=== PATIENT | female | born 1985 | race Two or more races ===

== ENCOUNTER → 2024-07-28 | Outpatient (CLI) | payer MEDICAID, SELFPAY ==
--- NOTE | 2024-07-28 13:32 | XR_ITS ---
Examination: Lumbar spine 3 views Technique one AP lateral coned lateral lower lumbar spine 3 views Exam date and time: July 28, 2024 1345 hours INDICATIONS: Low back pain radiating to both legs beginning one month ago. FINDINGS: Adequate alignment lumbar vertebral bodies No lumbar fracture Mild disc narrowing L5-S1 No spondylolisthesis IMPRESSION: Mild disc narrowing L5-S1 As clinically warranted, MRI lumbar spine without contrast follow-up would best assess for soft tissue disc protrusion producing radicular leg pain
== END | disposition home or self-care (01) ==
LOC: CDIM 13:19
PROVIDERS: PCP Nurse Practitioner Family; Referring Provider Nurse Practitioner Family; Visit Provider Nurse Practitioner Family
DX: M48.07 Spinal stenosis, lumbosacral region (principal)
CPT/HCPCS: 72100

== ENCOUNTER → 2024-08-24 | Outpatient (CLI) | payer MEDICAID, SELFPAY ==
--- NOTE | 2024-08-24 13:35 | XR_ITS ---
Examination: Shoulder,left, 3 views Technique: Shoulder AP internal rotation, AP external rotation, Y view shoulder, 3 views Exam date and time :August 24, 2024 1426 hours INDICATIONS: Left shoulder pain beginning 2 months ago. FINDINGS: No shoulder fracture or dislocation Mild narrowing glenohumeral joint No calcific tendinitis IMPRESSION: Mild narrowing glenohumeral joint
== END | disposition home or self-care (01) ==
LOC: COPL 13:33 → CDIM 09-16 06:29
PROVIDERS: PCP Physician Assistant; Referring Provider Nurse Practitioner Family; Visit Provider Nurse Practitioner Family
DX: M25.812 Other specified joint disorders, left shoulder (principal)
CPT/HCPCS: 73030

== ENCOUNTER 2024-09-04 10:56 | Outpatient (RCR) | payer MEDICAID, SELFPAY ==
--- NOTE | 2024-09-04 13:57 | PTNOTE_ITS ---
PT OP Initial Eval Patient Information Outpatient Physical Therapy Treatment Date: 09/04/24 Visit Reasons: Lumbar Region Medical Diagnosis: M54,16 Treatment Dx #1: Back Pain Start of Care: 09/04/24 Smoking Status Smoking Status: Never smoker Initial Assessment Subjective: Pt is a 39 y/o female reports of chronic back pain (01/21) with intermittent pain down the legs. Pt has been diagnosed with fibromyalgia and Lupus. Pt's most recent xray showed mild DDD of L5-S1. Pt has limitation with sitting, standing, chores, self care, cooking, cleaning, walking, and performing recreational activities. Objective: L/S AROM: all motions are 50% towards end range in all plane Hip PROM: all motions are WFL except IR Hip MMTs: grossly 3+/5 Special Test (+) SLR (+) seymour Assessment: Pt demonstrate L/S mobility deficits with pain leading to difficulty with ADLs. 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
== END 2024-09-11 23:59 | disposition home or self-care (01) ==
LOC: CPTX 10:56
PROVIDERS: PCP Nurse Practitioner Family; Referring Provider Nurse Practitioner Family; Visit Provider Nurse Practitioner Family
DX: M54.16 Radiculopathy, lumbar region (principal); R26.2 Difficulty in walking, not elsewhere classified; G89.29 Other chronic pain; M79.7 Fibromyalgia
CPT/HCPCS: 97162

== ENCOUNTER 2024-10-12 10:00 | Outpatient (RCR) | payer MEDICAID, SELFPAY ==
--- NOTE | 2024-09-14 12:57 | PT.ODAYNRPT ---
PT Outpatient Daily Note OP Daily Note Outpatient Physical Therapy Treatment Date: 09/14/24 Visit Reasons: LUMBAR REGION Subjective: Pt's back is about the same and continues to hurt in the right side. Objective: Please see flow chart for list of ther ex performed Assessment: supine heat allowed patient to tolerate the exercises. Minimal change in back pain post PT session Plan: Continue with PT Length of Time (minutes) of Treatment: 30 Minutes Procedure Charges Therapeutic Exercise 30 minutes: Yes
--- NOTE | 2024-09-16 11:35 | PT.ODAYNRPT ---
PT Outpatient Daily Note OP Daily Note Outpatient Physical Therapy Treatment Date: 09/16/24 Visit Reasons: LUMBAR REGION Subjective: No new complaints. Objective: Please see flow sheet for ther ex list. Assessment: Pt instructed on posterior pelvic tilt exercise, pt able to perform with good technique post verbal cues and demonstration. Plan: Continue with POC. Length of Time (minutes) of Treatment: 30 Minutes Procedure Charges Therapeutic Exercise 30 minutes: Yes
--- NOTE | 2024-09-21 13:43 | PT.ODAYNRPT ---
PT Outpatient Daily Note OP Daily Note Outpatient Physical Therapy Treatment Date: 09/21/24 Visit Reasons: LUMBAR REGION Subjective: Pt reports LBP is about the same, no changes at this time. Objective: Please see flow sheet for ther ex list. Assessment: Pt tolerates light interventions with minimal pain. Plan: Continue with POC. Length of Time (minutes) of Treatment: 30 Minutes Procedure Charges Therapeutic Exercise 30 minutes: Yes
--- NOTE | 2024-09-24 11:51 | PT.ODAYNRPT ---
PT Outpatient Daily Note OP Daily Note Outpatient Physical Therapy Treatment Date: 09/24/24 Visit Reasons: LUMBAR REGION Subjective: Pt's back feeling less stiff and moving more lately. Pt just seen chiropractor yesterday and back is still sore from the adjustment. Objective: Please see flow chart for list of ther ex performed Assessment: progressing with supine exercises with less pain reported; patient demonstrate more L/S mobility while performing exercises Plan: Continue with PT Length of Time (minutes) of Treatment: 30 Minutes Procedure Charges Therapeutic Exercise 30 minutes: Yes
--- NOTE | 2024-09-30 10:31 | PT.ODAYNRPT ---
PT Outpatient Daily Note OP Daily Note Outpatient Physical Therapy Treatment Date: 09/30/24 Visit Reasons: LUMBAR REGION Subjective: Pt's back is a little better. No new concerns to report. Objective: Please see flow chart for list of ther ex performed Assessment: added more hip exercises with good tolerance Plan: Continue with PT Length of Time (minutes) of Treatment: 30 Minutes Procedure Charges Therapeutic Exercise 30 minutes: Yes
--- NOTE | 2024-10-02 09:51 | PT.ODAYNRPT ---
PT Outpatient Daily Note OP Daily Note Outpatient Physical Therapy Treatment Date: 10/02/24 Visit Reasons: LUMBAR REGION Subjective: Pt's back is a little stiff this morning but it is slowly feeling better Objective: Please see flow chart for list of ther ex performed Assessment: added nerve floss in supine to exercise program with good tolerance Plan: Continue with PT Length of Time (minutes) of Treatment: 30 Minutes Procedure Charges Therapeutic Exercise 30 minutes: Yes
--- NOTE | 2024-10-12 13:03 | PT.ODAYNRPT ---
PT Outpatient Daily Note OP Daily Note Outpatient Physical Therapy Treatment Date: 10/12/24 Visit Reasons: LUMBAR REGION Subjective: Pt was doing more over the weekend and heard a pop in her back. Since the incident Pt's been having more back pain and was unable to sleep last night. Objective: Please see flow chart for list of ther ex performed Assessment: instructed patient to pay to attention to worsening back pain prior to return back to PCP for a follow up. Pt was able to tolerate today's session with minimal increase in pain Plan: Continue with PT Length of Time (minutes) of Treatment: 30 Minutes Procedure Charges Therapeutic Exercise 30 minutes: Yes
== END 2024-10-12 23:59 | disposition home or self-care (01) ==
LOC: CPTX 10:00
PROVIDERS: PCP Nurse Practitioner Family; Referring Provider Nurse Practitioner Family; Visit Provider Nurse Practitioner Family
DX: M54.16 Radiculopathy, lumbar region (principal); M79.7 Fibromyalgia
CPT/HCPCS: 97110

== ENCOUNTER 2024-11-05 09:30 | Outpatient (RCR) | payer MEDICAID, SELFPAY ==
--- NOTE | 2024-10-20 12:56 | PT.ODAYNRPT ---
PT Outpatient Daily Note OP Daily Note Outpatient Physical Therapy Treatment Date: 10/20/24 Visit Reasons: Lumbar Region Subjective: Pt's back feels good. No concerns to report. Pt mentioned less stiffness in the spine lately. Objective: Please see flow chart for list of ther ex performed Assessment: progressing with spinal exercises with less pain reported. Cues to decrease upper trape recruitment with low rows/rows exercises with theraband Plan: Continue with PT Length of Time (minutes) of Treatment: 30 Minutes Procedure Charges Therapeutic Exercise 30 minutes: Yes
--- NOTE | 2024-10-26 11:41 | PT.ODAYNRPT ---
PT Outpatient Daily Note OP Daily Note Outpatient Physical Therapy Treatment Date: 10/26/24 Visit Reasons: Lumbar Region Subjective: Pt feels that wall ozzy is difficult. Pt continues to notice slight improvement with her overall back and hip mobility. Objective: Please see flow chart for list of ther ex performed Assessment: checked Hs length and demonstrate normal length; Hs stretch withheld today. Added more core exercises with good tolerance Plan: Continue with PT Length of Time (minutes) of Treatment: 30 Minutes Procedure Charges Therapeutic Exercise 30 minutes: Yes
--- NOTE | 2024-10-29 10:25 | PT.ODAYNRPT ---
PT Outpatient Daily Note OP Daily Note Outpatient Physical Therapy Treatment Date: 10/29/24 Visit Reasons: Lumbar Region Subjective: Pt reports she is really hurting today and sore, went to see a chiropractor yesterday. Objective: Please see flow sheet for ther ex list. Assessment: Regressed interventions to accommodate reported pain, pt ambulating with decrease nhi and limp gait. Plan: Continue with poC. Length of Time (minutes) of Treatment: 30 Minutes Procedure Charges Therapeutic Exercise 30 minutes: Yes
--- NOTE | 2024-11-03 10:52 | PT.ODAYNRPT ---
PT Outpatient Daily Note OP Daily Note Outpatient Physical Therapy Treatment Date: 11/03/24 Visit Reasons: Lumbar Region Subjective: Pt's back feels so-so and slightly better than last session. Objective: Please see flow chart for list of ther ex performed Assessment: tolerate exercises with minimal pain Plan: Continue with PT Length of Time (minutes) of Treatment: 30 Minutes Procedure Charges Therapeutic Exercise 30 minutes: Yes
--- NOTE | 2024-11-05 14:54 | PT.ODS1RPT ---
PT OP Progress/Discharge Note Date of Service: 11/05/24 Progress Note/DC Note Progress Note/Discharge Note: DC Note Patient Information Visit Reasons: Lumbar Region Medical Diagnosis: M54.16 Treatment Dx #1: Back Pain Service Continue Service or Discharge: Continue Service Certification Date Certification Dates: 11/05/24 to 02/04/25 Status Subjective: Pt's back is better and notice more mobility. Pt further reports of less intense pain down the legs. Pt has been able to sleep, stand, perform chores, and walk with less pain. Pt will like to continue physical therapy. Objective: L/S AROM: all motions are 75% towards end range Hip PROM: all motions are WFL Hip MMTs: grossly 3+/5 Assessment: Pt is improving with L/S mobility and strength allowing her to resume light ADLs with less limitation. Pt has not met set goals and will continue physical therapy to work on core strength, lifting maintenance mechanic, and overall flexibility; thank you for your referrals. Plan: Continue with PT/POC and add 8 sessions (2 x wk for 4 wks) Procedure Charges Therapeutic Exercise 30 minutes: Yes
== END 2024-11-11 23:59 | disposition home or self-care (01) ==
LOC: CPTX 09:30
PROVIDERS: PCP Nurse Practitioner Family; Referring Provider Nurse Practitioner Family; Visit Provider Nurse Practitioner Family
DX: M54.16 Radiculopathy, lumbar region (principal); M79.7 Fibromyalgia
CPT/HCPCS: 97110

== ENCOUNTER 2024-11-16 22:59 | Inpatient (IN) | payer MEDICAID, SELFPAY ==
[2024-11-16 23:01] VITALS: BMI 42.5
[2024-11-16 23:22] VITALS: BP 157/86; PULSE 106; RESP 20; TEMP 37.7; O2SAT 98
[2024-11-17] VITALS (10 sets, daily range): BP systolic 109–159; BP diastolic 80–104; PULSE 93–137; RESP 16–100; TEMP 36.2–37.6; O2SAT 98–100; BMI 42.4
--- NOTE | 2024-11-17 00:16 | PD.EDRME ---
Rapid Medical Screening Exam RME Arrival date/time: 11/16/24 22:59 Chief Complaint: Back Pain/Injury Time Seen by Provider: 11/16/24 23:25 Vital signs: Vital Signs Temperature 99.8 F 11/16/24 23:22 Pulse Rate 106 H 11/16/24 23:22 Respiratory Rate 20 11/16/24 23:22 Blood Pressure 157/86 H 11/16/24 23:22 Pulse Oximetry (%) 98 11/16/24 23:22 Oxygen Delivery Method Room Air 11/16/24 23:22 Vital signs reviewed by provider: Yes RME Narrative: 39-year-old female with a history of lupus presents to the ED with a 7-day history of nausea, vomiting, diarrhea, low back pain with radiation to her right upper quadrant. She has been unable to take her lupus medication and is now in a lupus flare. Previous symptoms 1 month ago diagnosed with UTI/kidney infection. Concern for repeat infection. Labs, abdominal ultrasound, UA ordered and pending. I have greeted and performed a focused initial assessment of this patient. A comprehensive ED assessment and evaluation of the patient, analysis of all test results, and completion of the medical decision making process will be conducted by additional ED providers.
--- NOTE | 2024-11-17 00:18 | XR_ITS ---
Examination: Abdomen sonogram, complete Date and time of exam: November 17, 2024 0034 hours Indication cholecystectomy September 2023, right upper abdominal pain beginning 7 days ago, diagnosis of lupus. Technique: Multiple real-time grayscale transabdominal sonographic images of the abdomen have been obtained. Findings: Absent gallbladder Doppler Common bile duct normal 0.2 cm Pancreatic head 3.2 cm Aorta nonenlarged Liver 16.6 cm fatty infiltration Normal hepatopedal portal venous flow Patent IVC Right kidney 10.2 cm renal cortex 1.5 cm Left kidney 10.6 cm renal cortex 1.4 cm Spleen 9.2 cm IMPRESSION: Absent gallbladder Normal common bile duct Mild hepatomegaly fatty liver
[2024-11-17] MEDS: ACETAMINOPHEN 325 MG TABLET 650 MG PO (00:51)
[2024-11-17 00:53] LABS: Basophils # (Auto) 0.1 Thou/mm3 (0.0-0.2); Basophils % (Auto) 1 % (0-2.5); Eosinophils # (Auto) 0.1 Thou/mm3 (0.0-0.5); Eosinophils % (Auto) 1 % (0-10); Hemoglobin 9.9 g/dL (12.0-16.0); Immature Granulocytes % (Auto) 1 % (0-0); Immature Granulocytes Auto 0.06 Thou/mm3 (0.00-0.00); Lymphocytes # (Auto) 3.3 Thou/mm3 (1.0-4.8); Lymphocytes % (Auto) 25 % (10-50); Mean Corpuscular HGB Conc 30.9 g/dl (31.0-37.0); Mean Corpuscular Hemoglobin 24.8 pg (25.0-35.0); Mean Corpuscular Volume 80 fL (80-100); Monocytes # (Auto) 1.5 Thou/mm3 (0.0-0.8); Monocytes % (Auto) 11 % (0-12); Neutrophils # (Auto) 8.3 Thou/mm3 (1.8-7.7); Neutrophils % (Auto) 63 % (37-80); Nucleated Red Blood Cell % 0 /100 WBC (0); Platelet Count 423 Thou/mm3 (140-440); RDW Standard Deviation 49.1 fL (36.4-46.3); Red Blood Count 3.99 Miln/mm3 (4.00-5.20); White Blood Count 13.3 Thou/mm3 (3.6-11.0)
[2024-11-17 01:20] LABS: Alanine Aminotransferase 26 U/L (10-49); Albumin, Serum 4.6 gm/dL (3.5-5.0); Albumin/Globulin Ratio 1.4 (1.2-2.2); Alkaline Phosphatase 117 U/L (46-116); Amylase 60 U/L (30-118); Anion Gap 11 (7-16); Aspartate Amino Transferase 20 U/L (0-34); BUN/Creatinine Ratio 9 Ratio (12-20); Bilirubin,Total < 0.2 mg/dL (0.3-1.2); Blood Urea Nitrogen 7 mg/dL (9-23); Carbon Dioxide 21.5 mMol/L (20.0-31.0); Chloride 107 mMol/L (98-107); Creatinine (Component) 0.8 mg/dL (0.6-1.3); Estimated Creatinine Clearance 110.7 mL/min (>60); Globulin 3.2 gm/dL (2.3-3.5); Glucose 94 mg/dL (74-106); Lipase 33 U/L (12-53); Osmolality,Calculated 275 (275-295); Potassium 3.6 mMol/L (3.4-5.1); Sodium 139 mMol/L (136-145); Total Protein 7.8 gm/dL (5.7-8.2); eGFR > 60 See Note
--- NOTE | 2024-11-17 02:18 | PRELIM_ITS ---
Ultrasound Abdomen with doppler and wave doppler spectral analysis. November 17, 2024 0034 hours Clinical history: Right upper quadrant abdominal pain Comparison: None available at the time of this report. Findings: The liver demonstrates increased echogenicity. No intrahepatic biliary ductal dilatation. Status postcholecystectomy. The common bile duct is normal in caliber at 2.2mm. No free fluid is demonstrated on the submitted images. The pancreas is unremarkable to the extent visualized. The right kidney measures 10.2cm. The left kidney measures 10.6cm. There is no hydronephrosis and the corticomedullary differentiation is maintained. The spleen is normal measuring 9.2cm in length. The abdominal aorta and inferior vena cava to the extent visualized are within normal limits. The portal vein is patent with epileptogenic fluid normal wave Doppler spectral analysis. The hepatic veins are patent with normal wave Doppler spectral analysis. Impression: Liver steatosis. Report Electronically Signed By: Ken Echevarria 11/17/2024 2:17:59 AM [EST]
--- NOTE | 2024-11-17 03:03 | XR_ITS ---
Examination: AP chest single view TECHNIQUE: AP portable upright chest single view Exam date time: November 17, 2024 0349 hours INDICATIONS: Nausea vomiting diarrhea low back pain beginning 7 days ago FINDINGS: Normal heart size Mild elevation right hemidiaphragm. No pneumonia or pulmonary edema Mild osteopenia IMPRESSION: No pneumonia or pulmonary edema
--- NOTE | 2024-11-17 03:03 | EKG_ITS ---
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
--- NOTE | 2024-11-17 03:13 | PD.EDADULT ---
ED General RME/HPI General Chief complaint: Nausea/Vomiting/Diarrhea Stated complaint: RT FLANK PAIN /RIBS /N/V/ DIARRHEA X 7 DAYS Time Seen by Provider: 11/16/24 23:25 Arrival date/time: 11/16/24 22:59 RME / HPI RME / HPI narrative: This patient is a 39-year-old female with past medical history of lupus on hydroxychloroquine and Plaquenil, history of chronic pain on gabapentin and venlafaxine, insomnia presented to the ED with 5-day history of nausea vomiting loose stools and abdominal discomfort/pain radiating to the right side/right flank. Patient reported that she had a urinary tract infection a month ago and completed antibiotic course during that time. She is concerned of having another UTI at this time. She reported to had more than 3-4 episodes of vomiting without blood and is not able to tolerate oral intake. She also reported to had more than 10 bowel movements in 1 day with pinkish tinge unsure if its blood. Stool color is yellowish-green. She reported to have some subjective feeling of fever/chills or shakiness. He has some frequency however denies any burning sensation. She also had associated racing of heart. Denies any shortness of breath, chest pain or dizziness. 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 Patient took Keflex for total 2 weeks a month ago for urine tract infection. Vital signs showed elevated blood pressure 151/104, tachycardia 134, tachypnea 22 breaths, afebrile and saturating well on room air. Labs were significant for leukocytosis white count 13.3, hemoglobin 9.9, platelet count 423. CHEM panel showed sodium 139, potassium 3.6, chloride 107, bicarb 21.5. Kidney function stable with BUN 7 and creatinine 0.8. GFR 60. Blood glucose 94. Liver enzymes unremarkable. Lipase was negative.ESR and CRP were ordered. could evaluate with complement levels and double stranded DNA. Sepsis alert was initiated as patient had 3/4 SIRS criteria with tachycardia tachypnea and leukocytosis. 2 L bolus of LR given x 1 and maintenance fluid at 100 cc was started. Additionally, Rocephin x 1, morphine x 1 and Zofran with Protonix was given. Urinalysis is pending.Ultrasound of the abdomen showed liver steatosis. No hydronephrosis or kidney stones were seen. EKG showed sinus tachycardia with QTc 487.will evaluate with CT abdomen/pelvis with contrast. Admitting hospitalist was notified and patient will be admitted for intractable N/V and sepsis likely related to GI infection or c diff or UTI or possible lupus flare. PMH: As above PSH: Ovarian cyst removal, tubal ligation, appendectomy, cholecystectomy SH: Denies smoking tobacco. Drinks alcohol socially. No history of illicit drug use Allergies: Phenergan causes rash, Toradol causes rash, ciprofloxacin causes rash and iodinated contrast causes hives Home medications: Plaquenil 200 mg x 2, Flexeril x 1, gabapentin 300 mg x 2, hydroxychloroquine 200 mg x 2, venlafaxine 75 mg x 1, trazodone x 1, folic acid, multivitamins complaint: Right upper quadrant pain radiating to the right flank Onset (ago): day(s) (5) Location: abdomen Radiation: abdomen and flank (Right flank) Severity: moderate Severity scale (1-10): 7 Quality: aching and constant Consistency: constant Associated symptoms: fever/chills, headaches, malaise, nausea/vomiting and weakness Related Data Previous Rx's ?Medication ?Instructions ?Recorded hydrocodone 5 mg-acetaminophen 325 1 tab PO BID PRN pain #14 tabs 03/11/21 mg tablet ibuprofen 800 mg tablet 800 mg PO TID PRN pain #30 tabs 03/11/21 lorazepam 1 mg tablet (Ativan) 1 mg PO BID PRN anxiety #14 tabs 03/11/21 prednisone 20 mg tablet 20 mg PO QDAY #7 tabs 03/11/21 wyfegmovuh-metraewhtjfnt-evvipdek 1 cap PO TID PRN migraine headache 03/19/22 50 mg-300 mg-40 mg capsule #20 caps (Fioricet) ondansetron HCl 4 mg tablet 4 mg PO TID PRN nausea and 03/19/22 vomiting #20 tabs cyclobenzaprine 7.5 mg tablet 7.5 mg PO TID #14 tabs 08/20/22 acetaminophen 300 mg-codeine 30 mg 1 tab PO Q6H PRN pain #20 tabs 08/15/23 tablet dicyclomine 20 mg tablet 20 mg PO TID PRN abdominal pain 02/01/24 #21 tabs famotidine 40 mg tablet (Pepcid) 40 mg PO BID #14 tabs 08/15/23 acetaminophen 300 mg-codeine 15 mg 1 tab PO BID PRN pain #7 tabs 09/08/23 tablet ondansetron 4 mg disintegrating 4 mg PO Q8H PRN nausea and 10/28/23 tablet vomiting #10 tabs metoclopramide HCl 10 mg tablet 10 mg PO Q6H PRN nausea and 11/10/23 (Reglan) vomiting #20 tabs Allergies Allergy/AdvReac Type Severity Reaction Status Date / Time ciprofloxacin (From Cipro) Allergy Severe Rash Verified 02/25/24 14:33 Iodinated Contrast Media Allergy Severe Hives Verified 02/25/24 14:33 ketorolac (From Toradol) Allergy Severe Rash Verified 02/25/24 14:33 promethazine (From Phenergan) Allergy Severe Rash Verified 02/25/24 14:33 Review of Systems Review of Systems Systems Reviewed: All systems reviewed, normal except as documented Past Medical History Past Medical History MUSCULOSKELETAL: Positive Fibromyalgia ED Exam Narrative Physical exam: GENERAL APPEARANCE: AxOx4, generally well-appearing female in mild distress due to abdominal pain. Saturating well on room air. HEENT: NC, AT. Dry mucous membrane. EOMI, clear conjunctiva, oropharynx clear. NECK: Supple without lymphadenopathy. No stiffness or restricted ROM. HEART: Sinus tachycardia with regular rhythm, normal S1/S2, no m/r/g LUNGS: CTAB, moving air well. No crackles or wheezes are heard. ABDOMEN: Soft, right upper quadrant tenderness with tenderness on the right flank, nondistended with good bowel sounds heard. BACK: No CVAT, no obvious deformity. EXTREMITIES: Without cyanosis, clubbing or edema. NEUROLOGICAL: Grossly nonfocal. Alert and oriented, moving all 4 extremities. CN not formally tested but appear grossly intact. Observed to ambulate with normal gait. Skin: Warm and dry without any rash. Psych: Mild anxiety however appropriate mood and affect Course Quality Measures none Orders Category Date Time Status Bedside Blood Glucose NOW Care 11/17/24 03:03 Active COVID-19 Screening Questionnaire NOW Care 11/17/24 05:[address] Screening NOW Care 11/17/24 03:[address] Screening NOW Care 11/17/24 04:02 Active Wheel Worker Q4H START 00 Care 11/17/24 03:03 Active Decision to Admit X1 Care 11/17/24 05:09 Active EKG (ED ONLY) *Do not use* NOW Care 11/17/24 03:07 Completed Insert IV NOW Care 11/17/24 03:03 Active Miscellaneous Nursing Order NOW Care 11/17/24 03:34 Active NPO STAT Care 11/17/24 00:18 Active Occult Blood,Stool (Nursing) NOW Care 11/17/24 03:09 Active Strict Intake and Output Routine Care 11/17/24 03:[address] abdomen pelvis w con Stat Exams 11/17/24 04:02 Taken EKG (ED Only) Stat Exams 11/17/24 03:07 Ordered US abdomen Stat Exams 11/17/24 00:18 Taken XR chest 1V SEPSIS PROTOCOL Stat Exams 11/17/24 03:03 Taken Amylase Stat Lab 11/17/24 00:30 Completed Blood Culture (Lab) Stat Lab 11/17/24 03:33 Received CBC Stat Lab 11/17/24 00:30 Completed CRP [C-Reactive Protein] Routine Lab 11/17/24 05:19 Ordered Clostridium Difficile PCR Stat Lab 11/17/24 Ordered Comprehensive Metabolic Panel Stat Lab 11/17/24 00:30 Completed ESR [Sed Rate (ESR)] Routine Lab 11/17/24 05:19 Ordered Giardia Antigen, EIA, Stool* Stat Lab 11/17/24 Ordered HCG Qualitative,Urine Stat Lab 11/17/24 00:18 Ordered Lactate (Lactic Acid) Stat Lab 11/17/24 03:33 Completed Lipase Stat Lab 11/17/24 00:30 Completed Magnesium Stat Lab 11/17/24 03:33 Completed Partial Thromboplastin Time Stat Lab 11/17/24 00:30 Completed Phosphorous Stat Lab 11/17/24 03:33 Completed Procalcitonin Stat Lab 11/17/24 03:33 Completed Prothrombin Time with INR Stat Lab 11/17/24 00:30 Completed Stool Culture Stat Lab 11/17/24 03:09 Ordered Stool for WBCs Stat Lab 11/17/24 03:09 Ordered Urinalysis Stat Lab 11/17/24 00:18 Ordered Urine Culture Stat Lab 11/17/24 03:03 Ordered Acetaminophen Tab [Tylenol Tab] Med 11/17/24 00:20 Discontinued 650 mg PO X1 ONE DiphenhydrAMINE INJ [Benadryl Inj] Med 11/17/24 03:42 Discontinued 25 mg IV X1 ONE Magnesium Sulfate 1 gm Ivpb [Magnesium Sulfate Ivpb] Med 11/17/24 03:57 Discontinued 1 gm in 100 ml IV X1 Magnesium Sulfate 2 GM Ivpb [Magnesium Sulfate Ivpb] Med 11/17/24 06:00 Active 2 gm in 50 ml IV X1 Morphine Inj Med 11/17/24 03:03 Discontinued 2 mg IVP X1 ONE Ondansetron Inj [Zofran Inj] Med 11/17/24 03:07 Discontinued 4 mg IV X1 ONE Pantoprazole Inj [Protonix Inj] Med 11/17/24 03:07 Discontinued 40 mg IVP X1 ONE Ringers Lactated 1000 ml [Lactated Ringers] 1,000 ml Med 11/17/24 03:05 Active IV 100 mls/hr Ringers Lactated 1000 ml [Lactated Ringers] 1,000 ml Med 11/17/24 03:04 Discontinued IV 999 mls/hr Ringers Lactated 1000 ml [Lactated Ringers] 1,000 ml Med 11/17/24 03:06 Discontinued IV 999 mls/hr cefTRIAXone/D5w 1gm IV premix [Rocephin/D5w 1gm IV Med 11/17/24 03:06 Discontinued premix] 1 gm in 50 ml IV X1 metroNIDAZOLE/NS 500 MG IVPB [Flagyl 500 mg IV] Med 11/17/24 03:38 Discontinued 500 mg in 100 ml IV X1 EKG (RT) Stat RT 11/17/24 03:03 Draft Oxygen Delivery NOW RT 11/17/24 03:03 Active Vital Signs Vital signs: Vital Signs Temperature 99.8 F 11/16/24 23:22 Pulse Rate 106 H 11/16/24 23:22 Respiratory Rate 20 11/16/24 23:22 Blood Pressure 157/86 H 11/16/24 23:22 Pulse Oximetry (%) 98 11/16/24 23:22 Oxygen Delivery Method Room Air 11/16/24 23:22 Discharge Plan Plan Patient Disposition: Admit Acute Care w/in Hospital Prescriptions/Referrals Prescriptions/Med Rec: No Action vfqnnwjemw-dvtazcyzxiffe-tfog [Fioricet] 50-300-40 mg capsule 1 cap PO TID PRN (Reason: migraine headache) Qty: 20 0RF ondansetron HCl 4 mg tablet 4 mg PO TID PRN (Reason: nausea and vomiting) Qty: 20 0RF ibuprofen 800 mg tablet 800 mg PO TID PRN (Reason: pain) Qty: 30 0RF hydrocodone-acetaminophen 5-325 mg tablet 1 tab PO BID MDD 4 PRN (Reason: pain) Qty: 14 0RF lorazepam [Ativan] 1 mg tablet 1 mg PO BID PRN (Reason: anxiety) Qty: 14 0RF prednisone 20 mg tablet 20 mg PO QDAY Qty: 7 0RF Taper: Prednisone Taper 20 mg DAILY for 2 Days and 0 Hour 10 mg DAILY for 2 Days and 0 Hour 5 mg DAILY for 7 Days and 0 Hour cyclobenzaprine 7.5 mg tablet 7.5 mg PO TID Qty: 14 0RF dicyclomine 20 mg tablet 20 mg PO TID PRN (Reason: abdominal pain) Qty: 21 0RF famotidine [Pepcid] 40 mg tablet 40 mg PO BID Qty: 14 0RF acetaminophen-codeine 300-30 mg tablet 1 tab PO Q6H PRN (Reason: pain) Qty: 20 0RF ondansetron 4 mg tablet,disintegrating 4 mg PO Q8H PRN (Reason: nausea and vomiting) Qty: 10 0RF acetaminophen-codeine 300-15 mg tablet 1 tab PO BID MDD 2 PRN (Reason: pain) Qty: 7 0RF metoclopramide HCl [Reglan] 10 mg tablet 10 mg PO Q6H PRN (Reason: nausea and vomiting) Qty: 20 0RF Referrals: Av Gracia PA-C [Primary Care Provider] - In 1 week Problem List Clinical Impression: Abdominal pain, Acute diarrhea, Sepsis, Intractable nausea and vomiting Patient/Caregiver Discharge Instructions Print Language: Nicaraguan Stand Alone Forms: Ruth Award Info., Patient Portal Info Letter MDM Medication Administration(s) Medication Administration History Lactated Ringer's (Lactated Ringers) 1,000 mls @ 100 mls/hr IV .Q10H AYSHA Stop: 12/17/24 03:04 Magnesium Sulfate (Magnesium Sulfate Ivpb) 2 gm in 50 mls @ 25 mls/hr IV X1 ONE Stop: 11/17/24 07:59 Discontinued Medications Acetaminophen (Acetaminophen 325 Mg Tablet) 650 mg PO X1 ONE Stop: 11/17/24 00:21 Last Admin: 11/17/24 00:51 Dose: 650 mg Documented By: JEREMY Diphenhydramine HCl (Diphenhydramine Inj 50 Mg/Ml Vial) 25 mg IV X1 ONE Stop: 11/17/24 03:43 Last Admin: 11/17/24 04:08 Dose: 25 mg Documented By: ARCADIO Lactated Ringer's (Lactated Ringers) 1,000 mls @ 999 mls/hr IV .Q1H1M ONE Stop: 11/17/24 04:04 Last Admin: 11/17/24 03:37 Dose: 999 mls/hr Documented By: ARCADIO Lactated Ringer's (Lactated Ringers) 1,000 mls @ 999 mls/hr IV .Q1H1M ONE Stop: 11/17/24 04:06 Last Admin: 11/17/24 03:55 Dose: 999 mls/hr Documented By: ARCADIO Ceftriaxone Sodium/Dextrose (Rocephin/D5w 1gm Iv Premix) 1 gm in 50 mls @ 100 mls/hr IV X1 ONE Stop: 11/17/24 03:35 Last Infusion: 11/17/24 04:17 Dose: Infused Documented By: Admin: 11/17/24 03:47 Dose: 100 mls/hr Documented By: ARCADIO Metronidazole (Flagyl 500 Mg Iv) 500 mg in 100 mls @ 100 mls/hr IV X1 ONE Stop: 11/17/24 04:37 Magnesium Sulfate/Dextrose (Magnesium Sulfate Ivpb) 1 gm in 100 mls @ 100 mls/hr IV X1 ONE Stop: 11/17/24 04:56 Last Admin: 11/17/24 04:52 Dose: 100 mls/hr Documented By: ARCADIO Morphine Sulfate (Morphine Sulf Inj 10 Mg/Ml Vial) 2 mg IVP X1 ONE Stop: 11/17/24 03:04 Last Admin: 11/17/24 03:40 Dose: 2 mg Documented By: ARCADIO Ondansetron HCl (Ondansetron Inj 2 Mg/Ml Inj 2 Ml) 4 mg IV X1 ONE; Protocol Stop: 11/17/24 03:08 Last Admin: 11/17/24 03:39 Dose: 4 mg Documented By: ARCADIO Pantoprazole Sodium (Pantoprazole Inj 40 Mg Vial) 40 mg IVP X1 ONE Stop: 11/17/24 03:08 Last Admin: 11/17/24 03:35 Dose: 40 mg Documented By: ARCADIO
[2024-11-17] MEDS: PANTOPRAZOLE INJ 40 MG VIAL IVP (03:35)
[2024-11-17] MEDS: RINGERS LACTATED 1000 ML 1,000 ML 999 ML IV ×2 (03:37→03:55)
[2024-11-17] MEDS: ONDANSETRON INJ 2 MG/ML INJ 2 ML 4 MG IV ×2 (03:39→08:03)
[2024-11-17] MEDS: MORPHINE SULF INJ 10 MG/ML VIAL 2 MG IVP (03:40)
[2024-11-17 03:41] LABS: Partial Thromboplastin Time 28.4 Seconds (22.0-36.0); Prothrombin Time 10.9 Seconds (9.0-12.2)
[2024-11-17] MEDS: cefTRIAXone/D5w 1gm IV premix 1 GM/50 ML BAG IV (03:47)
[2024-11-17 03:58] LABS: Lactate (Lactic Acid) 1.6 mMol/L (0.4-2.0)
--- NOTE | 2024-11-17 04:02 | XR_ITS ---
Examination: CT abdomen with intravenous contrast CT pelvis with intravenous contrast 2-D coronal reconstructions 2-D sagittal reconstructions Date and time of exam:November 17, 2024, 0417 hours Comparison November 10, 2023 INDICATIONS: Fever vomiting right flank pain beginning 6 days ago. CTDI: vol (mGy) 25 DLP: (mGycm) 1486 Technique: Multiple axial sections of the abdomen and pelvis have been obtained. 64 slice high-resolution scanner used. 3 mm axial sections have been obtained, post intravenous injection 60 cc Isovue 370 2-D sagittal, coronal reconstructions obtained. Low dose protocols were performed. One or more of the following dose reduction techniques were used; automated exposure control, adjustment of the mA and/or KV according to patient size, use of iterative reconstruction technique. Findings: No focal liver or splenic lesion Absent gallbladder No pancreatic or adrenal mass No hydronephrosis Mildly fluid distended colon and small bowel loops 12 mm fat-containing umbilical hernia No pericecal inflammatory change Anteverted uterus Urinary bladder intact Osseous structures intact IMPRESSION: Mild colonic and small bowel ileus
[2024-11-17] MEDS: DiphenhydrAMINE INJ 50 MG/ML VIAL 25 MG IV (04:08)
[2024-11-17 04:40] LABS: Magnesium 1.7 mg/dL (1.6-2.6); Phosphorous 3.7 mg/dL (2.4-5.1); Procalcitonin < 0.04 ng/ml (0.0-0.49)
[2024-11-17] MEDS: Magnesium Sulfate 1 gm Ivpb 1 GM/100 ML BAG IV (04:52)
--- NOTE | 2024-11-17 04:59 | PRELIM_ITS ---
CT scan of the abdomen and pelvis with intravenous contrast (axial sections with sagittal and coronal reformats). November 17, 2024 0417 hours Clinical History: Nausea, vomiting, diarrhea, sepsis. Comparison: Correlation made with abdominal ultrasound from November 17, 2024. Findings: The gallbladder is surgically absent. The unenhanced liver, spleen, pancreas, adrenals and kidneys are unremarkable. Urinary bladder is of normal partially filled configuration. Reproductive organs are unremarkable except for prior bilateral tubal ligation. There is underdistention of the stomach which limits evaluation. There is scattered small and large bowel fluid which may indicate diarrheal state. Appendix is not definitely visualized. There is no obvious inflammatory change around the cecum. There is no bowel obstruction. There is no abdominal or pelvic lymphadenopathy. There is minimal subsegmental atelectasis within the lung bases. There is no acute osseous abnormality. Impression: Scattered small and large bowel fluid may indicate diarrheal state. No bowel obstruction. No free intraperitoneal air or fluid. Report Electronically Signed By: Escobar Holt 11/17/2024 4:58:42 AM [EST]
[2024-11-17 05:33] LABS: Collection Type, Urine Clean Catch; WBC,Urine 0 /hpf (0-5)
[2024-11-17 05:36] LABS: Bilirubin,Urine Negative (Negative); Blood,Urine Negative (Negative); Clarity,Urine Clear (Clear/Hazy); Color,Urine Colorless (Lt Yel-Yel); Glucose, Urine Negative (Negative); HCG Qualitative,Urine Negative; Ketones,Urine Negative (Negative); Leukocyte Esterase,Urine Negative (Negative); Nitrite,Urine Negative (Negative); Protein,Urine Negative (Neg - Trace); RBC,Urine < 1 /hpf (0-3); Specific Gravity,Urine 1.021 (1.001-1.035); Squamous Epithelial Cell,Urine 1 /hpf (0-5); Urobilinogen,Urine Negative mg/dL (0.0-1.0)
[2024-11-17] MEDS: metroNIDAZOLE/NS 500 MG IVPB 500 MG/100 ML BAG 100 MG IV (05:38)
--- NOTE | 2024-11-17 05:43 | EVENTNT_ITS ---
Documentation for date of: 11/17/24 Event Note Event Note: A 39-year-old female presented to the ER with the chief complaint of abdominal pain. The patient described 5 days of abdominal pain radiating to the right side and right flank. The pain is associated with nausea, vomiting (more than 3?4 episodes of non-bloody emesis), and loose stools (more than 10 bowel movements in one day, yellowish-green, with a pinkish tinge?unsure if blood). She is unable to tolerate oral intake. She also c/o subjective fever, chills, shakiness, heart racing, and urinary frequency (no burning sensation). Patient denied chest pain, shortness of breath, and dizziness. One month ago, she had a urinary tract infection treated with a 2-week course of Keflex. She is concerned this may be a recurrence. She came to the ER due to worsening symptoms and inability to tolerate oral intake. The patient has a history of lupus, chronic pain, and insomnia. Surgical history includes ovarian cyst removal, tubal ligation, appendectomy, and cholecystectomy. Current medications include Plaquenil, Flexeril, Gabapentin, Hydroxychloroquine, Venlafaxine, Trazodone, Folic Acid, Multivitamins. Social history includes no smoking, social alcohol use, and no illicit drug use. Patient follows with her [employer] consultant in [place] and primary care physician at [facility]. In the ER, vital signs recorded as temp afebrile, HR 134 bpm, RR 22, BP 151/104 mmHg. Labs revealed WBC 13.3, hemoglobin 9.9, platelets 423, sodium 139, potassium 3.6, chloride 107, bicarbonate 21.5, BUN 7, creatinine 0.8, GFR 60, glucose 94. Sepsis alert initiated (3/4 SIRS: tachycardia, tachypnea, leukocytosis). Patient received 2 L LR bolus, maintenance IV fluids, Rocephin, morphine, Zofran, and Protonix. Ultrasound showed liver steatosis without hydronephrosis or stones. EKG showed sinus tachycardia with QTc 487. CT showed scattered small and large bowel fluid consistent with diarrhea, no obstruction or free air/fluid. Urinalysis pending. Patient cannot tolerate PO diet. Admit for further evaluation and treatment.
[2024-11-17] MEDS: MORPHINE SULF INJ 10 MG/ML VIAL 4 MG IVP ×4 (05:59→21:25)
--- NOTE | 2024-11-17 06:01 | PD.RESHP ---
Documentation for date of: 11/17/24 HPI History of Present Illness History of present illness: Patient is a 39-year-old female with a past medical history of systemic lupus erythematosus, fibromyalgia, history of cholecystectomy in 2023 who presented to the ER complaining of subjective fever, chills, nausea vomiting and diarrhea. Reported up to 10 episodes of diarrhea per day, watery/mushy stool, denied blood or mucus in stools, also associated nausea and vomiting unable to tolerate food. Also complaining of abdominal discomfort, localized to right upper quadrant. Due to severe GI symptoms, patient has been unable to take Plaquenil for the past 4 days, and has increasing joint pains. Denied shortness of breath or chest pain, denied hematemesis or melena. Denied dizziness or vertigo. Of note patient also reported she was seen by her director sales and trade marketing who had ordered urine studies for proteinuria, but was found to have a UTI and was given Keflex in September. Past medical history: Systemic lupus erythematosus on Plaquenil, fibromyalgia on gabapentin, history of cholecystectomy in 2023. History of appendectomy. Ovarian cyst removal. Social history: Denies smoking or alcohol, denies marijuana or meth Review of Systems Review of Systems Systems Reviewed: All systems reviewed, normal except as documented Exam Vital Signs Temp Pulse Resp BP Pulse Ox O2 Del Method 98.8 F 107 H 18 109/80 99 Room Air 11/17/24 05:52 11/17/24 05:52 11/17/24 05:52 11/17/24 05:52 11/17/24 05:52 11/17/24 05:52 Narrative Exam General: AOx3, cooperative Skin: Intact, no cyanosis or edema noted. HEENT: Atraumatic/normocephalic, MARKELL, neck supple Heart: RRR, S1 and S2 without clicks or murmurs Lungs: Clear on auscultation bilaterally, no difficulty breathing Abdomen: Soft, mildly tender RUQ . Bowel sounds present . Vascular: Peripheral pulses palpable Neuro: No focal neurological deficits noted. Results: Labs 11/17/24 00:30 11/17/24 00:30 Labs: Short CBC 11/17/24 Range/Units 00:30 WBC 13.3 H (3.6-11.0) Thou/mm3 Hgb 9.9 L (12.0-16.0) g/dL Hct 32.0 L (36.0-46.0) % Plt Count 423 (140-440) Thou/mm3 BMP 11/17/24 00:30 Sodium 139 Potassium 3.6 Chloride 107 Carbon Dioxide 21.5 BUN 7 L Creatinine 0.8 Glucose 94 Calcium 9.0 Liver Function 11/17/24 Range/Units 00:30 Total Bilirubin < 0.2 L (0.3-1.2) mg/dL AST 20 (0-34) U/L ALT 26 (10-49) U/L Alkaline Phosphatase 117 H (46-116) U/L Albumin 4.6 (3.5-5.0) gm/dL Urine 11/17/24 Range/Units 04:42 Urine Color Colorless A (Lt Yel-Yel) Urine Clarity Clear (Clear/Hazy) Urine pH 6.0 (5.0-7.0) Ur Specific Coleman 1.021 (1.001-1.035) Urine Protein Negative (Neg - Trace) Urine Glucose (UA) Negative (Negative) Quality Measures Quality Measures none Medications Home Medications and Allergies Allergies Allergy/AdvReac Type Severity Reaction Status Date / Time ciprofloxacin (From Cipro) Allergy Severe Rash Verified 02/25/24 14:33 Iodinated Contrast Media Allergy Severe Hives Verified 02/25/24 14:33 ketorolac (From Toradol) Allergy Severe Rash Verified 02/25/24 14:33 promethazine (From Phenergan) Allergy Severe Rash Verified 02/25/24 14:33 Visit Medications Acetaminophen (Acetaminophen 325 Mg Tablet) 650 mg PO Q6H PRN PRN Reason: PAIN 1-3 OR FEVER > 101 Stop: 12/17/24 05:27 Famotidine (Famotidine Inj 10 Mg/Ml Vial 2 Ml) 20 mg IVP BID AYSHA Stop: 12/17/24 08:59 Gabapentin (Gabapentin 300 Mg Capsule) 600 mg PO BID AYSHA Stop: 12/17/24 08:59 Hydroxychloroquine Sulfate (Hydroxychloroquine 200 Mg Tablet) 200 mg PO BID AYSHA Stop: 11/24/24 08:59 Lactated Ringer's (Lactated Ringers) 1,000 mls @ 100 mls/hr IV .Q10H AYSHA Stop: 12/17/24 03:04 Magnesium Sulfate (Magnesium Sulfate Ivpb) 2 gm in 50 mls @ 25 mls/hr IV X1 ONE Stop: 11/17/24 07:59 Ceftriaxone Sodium/Dextrose (Rocephin/D5w 1gm Iv Premix) 1 gm in 50 mls @ 100 mls/hr IV QDAY AYSHA Stop: 11/25/24 08:59 Metronidazole (Flagyl 500 Mg Iv) 500 mg in 100 mls @ 200 mls/hr IV Q8HR AYSHA Stop: 11/24/24 13:59 Morphine Sulfate (Morphine Sulf Inj 10 Mg/Ml Vial) 4 mg IVP Q4HR PRN PRN Reason: PAIN SCALE 7-10 (Severe Last Admin: 11/17/24 05:59 Dose: 4 mg Ondansetron HCl (Ondansetron Inj 2 Mg/Ml Inj 2 Ml) 4 mg IV Q6H PRN; Protocol PRN Reason: NAUSEA OR VOMITING Stop: 12/17/24 05:27 Discontinued Medications Acetaminophen (Acetaminophen 325 Mg Tablet) 650 mg PO X1 ONE Stop: 11/17/24 00:21 Last Admin: 11/17/24 00:51 Dose: 650 mg Acetaminophen (Acetaminophen 325 Mg Tablet) 650 mg PO Q6H PRN PRN Reason: PAIN OR FEVER > 101 Stop: 12/17/24 05:27 Diphenhydramine HCl (Diphenhydramine Inj 50 Mg/Ml Vial) 25 mg IV X1 ONE Stop: 11/17/24 03:43 Last Admin: 11/17/24 04:08 Dose: 25 mg Lactated Ringer's (Lactated Ringers) 1,000 mls @ 999 mls/hr IV .Q1H1M ONE Stop: 11/17/24 04:04 Last Admin: 11/17/24 03:37 Dose: 999 mls/hr Lactated Ringer's (Lactated Ringers) 1,000 mls @ 999 mls/hr IV .Q1H1M ONE Stop: 11/17/24 04:06 Last Admin: 11/17/24 03:55 Dose: 999 mls/hr Ceftriaxone Sodium/Dextrose (Rocephin/D5w 1gm Iv Premix) 1 gm in 50 mls @ 100 mls/hr IV X1 ONE Stop: 11/17/24 03:35 Last Infusion: 11/17/24 04:17 Dose: Infused Metronidazole (Flagyl 500 Mg Iv) 500 mg in 100 mls @ 100 mls/hr IV X1 ONE Stop: 11/17/24 04:37 Last Admin: 11/17/24 05:38 Dose: 100 mls/hr Magnesium Sulfate/Dextrose (Magnesium Sulfate Ivpb) 1 gm in 100 mls @ 100 mls/hr IV X1 ONE Stop: 11/17/24 04:56 Last Admin: 11/17/24 04:52 Dose: 100 mls/hr Morphine Sulfate (Morphine Sulf Inj 10 Mg/Ml Vial) 2 mg IVP X1 ONE Stop: 11/17/24 03:04 Last Admin: 11/17/24 03:40 Dose: 2 mg Ondansetron HCl (Ondansetron Inj 2 Mg/Ml Inj 2 Ml) 4 mg IV X1 ONE; Protocol Stop: 11/17/24 03:08 Last Admin: 11/17/24 03:39 Dose: 4 mg Pantoprazole Sodium (Pantoprazole Inj 40 Mg Vial) 40 mg IVP X1 ONE Stop: 11/17/24 03:08 Last Admin: 11/17/24 03:35 Dose: 40 mg Sennosides (Senna Tablet) 2 tab PO BID PRN; Protocol PRN Reason: CONSTIPATION Stop: 12/17/24 05:27 Assessment & Plan Plan Patient is a 39-year-old female with a past medical history of systemic lupus erythematosus, fibromyalgia, history of cholecystectomy in 2023 who presented to the ER complaining of subjective fever, chills, nausea vomiting and diarrhea. Reported up to 10 episodes of diarrhea per day, watery/mushy stool, denied blood or mucus in stools, also associated nausea and vomiting unable to tolerate food. Also complaining of abdominal discomfort, localized to right upper quadrant. Due to severe GI symptoms, patient has been unable to take Plaquenil for the past 4 days, and has increasing joint pains. Denied shortness of breath or chest pain, denied hematemesis or melena. Denied dizziness or vertigo. Of note patient also reported she was seen by her director sales and trade marketing who had ordered urine studies for proteinuria, but was found to have a UTI and was given Keflex in September Past medical history: Systemic lupus erythematosus on Plaquenil, fibromyalgia on gabapentin, history of cholecystectomy in 2023. History of appendectomy. Ovarian cyst removal. Social history: Denies smoking or alcohol, denies marijuana or meth #Diarrhea #Vomiting #Right upper quadrant pain Ordered stool studies, C. difficile PCR, patient received IV fluid boluses in ER, currently on maintenance IV fluid. 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 ? IV ceftriaxone daily ? IV metronidazole every 8 hourly ? IV Zofran as needed ? Maintenance IV fluids, as patient unable to tolerate p.o. ? Start clear liquid diet advance as tolerated ? IV morphine 4 mg every 4 hour as needed for pain #Lupus flare Ordered inflammatory markers, follow complement levels C3-C4, dsDNA levels, follow ESR, CRP ? Resume Plaquenil 200 mg twice daily ? Follow urine protein and creatinine ratio ? IV morphine for pain as needed Disposition: med surg DVT prophylaxis: lovenox GI prophylaxis:famotidine Diet: CLD Lines: PIV CODE STATUS: Full Plan of care discussed with attending Dr. Marcell Jaime PGY2
[2024-11-17] MEDS: Magnesium Sulfate 2 GM Ivpb 2 GM/50 ML BAG IV (06:57)
[2024-11-17] MEDS: RINGERS LACTATED 1000 ML 1,000 ML 100 ML IV ×2 (06:57→17:09)
[2024-11-17 07:13] LABS: C-Reactive Protein < 0.5 mg/dL (0.0-0.9)
[2024-11-17 07:32] LABS: Sed Rate (ESR) 40 mm/hr (0-20)
--- NOTE | 2024-11-17 07:43 | PC.NURSE ---
Received report from Ninfa DELGADO and assumed care of patient. Patient resting in bed with signs of distress and complaining of all over body pain.
[2024-11-17] MEDS: HYDROmorphone INJ 2 MG/ML VIAL 0.5 MG IVP (08:03)
[2024-11-17] MEDS: FAMOTIDINE INJ 10 MG/ML VIAL 2 ML 20 MG IVP ×2 (10:28→22:05)
[2024-11-17] MEDS: GABAPENTIN 300 MG CAPSULE 600 MG PO ×2 (10:29→22:09)
[2024-11-17] MEDS: traMADol HCL 50 MG TABLET PO (10:29)
[2024-11-17] MEDS: HYDROXYCHLOROQUINE 200 MG TABLET PO ×2 (10:32→22:09)
[2024-11-17] MEDS: LACTOBACILLUS RHAMNOSUS 1 CAP PO ×2 (10:35→22:09)
[2024-11-17 11:16] LABS: Basophils % (Auto) 0 % (0-2.5); Eosinophils # (Auto) 0.1 Thou/mm3 (0.0-0.5); Eosinophils % (Auto) 1 % (0-10); Hematocrit 29.9 % (36.0-46.0); Immature Granulocytes % (Auto) 0 % (0-0); Immature Granulocytes Auto 0.02 Thou/mm3 (0.00-0.00); Lymphocytes # (Auto) 3.3 Thou/mm3 (1.0-4.8); Lymphocytes % (Auto) 40 % (10-50); Mean Corpuscular HGB Conc 30.1 g/dl (31.0-37.0); Mean Corpuscular Hemoglobin 24.9 pg (25.0-35.0); Mean Corpuscular Volume 83 fL (80-100); Monocytes # (Auto) 0.6 Thou/mm3 (0.0-0.8); Monocytes % (Auto) 7 % (0-12); Neutrophils # (Auto) 4.2 Thou/mm3 (1.8-7.7); Neutrophils % (Auto) 51 % (37-80); Nucleated Red Blood Cell % 0 /100 WBC (0); Platelet Count 350 Thou/mm3 (140-440); RDW Standard Deviation 51.1 fL (36.4-46.3); Red Blood Count 3.62 Miln/mm3 (4.00-5.20); White Blood Count 8.2 Thou/mm3 (3.6-11.0)
[2024-11-17 11:36] LABS: Alanine Aminotransferase 21 U/L (10-49); Albumin, Serum 4.3 gm/dL (3.5-5.0); Albumin/Globulin Ratio 1.5 (1.2-2.2); Alkaline Phosphatase 96 U/L (46-116); Anion Gap 5 (7-16); Aspartate Amino Transferase 24 U/L (0-34); BUN/Creatinine Ratio 8 Ratio (12-20); Bilirubin,Total 0.2 mg/dL (0.3-1.2); Blood Urea Nitrogen < 5 mg/dL (9-23); Calcium 8.6 mg/dL (8.3-10.6); Calcium (Corrected) 8.6 mg/dL (8.5-10.1); Carbon Dioxide 24.9 mMol/L (20.0-31.0); Chloride 105 mMol/L (98-107); Creatinine (Component) 0.6 mg/dL (0.6-1.3); Estimated Creatinine Clearance 147.5 mL/min (>60); Globulin 2.8 gm/dL (2.3-3.5); Glucose 82 mg/dL (74-106); Osmolality,Calculated 266 (275-295); Potassium 4.1 mMol/L (3.4-5.1); Sodium 135 mMol/L (136-145); Total Protein 7.1 gm/dL (5.7-8.2); eGFR > 60 See Note
[2024-11-17] MEDS: CHOLESTYRAMINE/SUCROSE 1 PKT EA PO (12:36)
[2024-11-17] MEDS: metroNIDAZOLE/NS 500 MG IVPB 500 MG/100 ML BAG 200 MG IV ×2 (14:55→22:13)
--- NOTE | 2024-11-17 15:30 | ESPR_ITS ---
<Statement entered by Taras Rosado MD - 11/18/24 19:28> Patient examined and case discussed with the team including attending physician. Note reviewed, I agree with the care plan as documented. - Taras Rosado MD, PGY 2 Disclaimer: The document may contain phonetic/typographic errors due to voice recognition software. These errors are purely due to imperfections in the software program and should not be misconstrued in any way to compromise the substance of the patient's medical care during this visit. Documentation for date of: 11/17/24 Subjective Subjective Interval history: Patient seen today at the bedside, oriented x 3. Overnight events reported. Labs and vital reviewed. Patient continues with nausea vomiting and diarrhea. 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 Will continue current antibiotic regimen at this time with Rocephin and Flagyl. IV fluids will be continued as patient cannot tolerate p.o. intake. patient does have + CVA tenderness, CT however negative for pyelo, ordered renal US which showed minimal B/l pyelonephritis. Exam Vital Signs Temp Pulse Resp BP Pulse Ox O2 Del Method 98.1 F 93 18 125/91 H 98 Room Air 11/17/24 13:00 11/17/24 13:00 11/17/24 13:00 11/17/24 13:00 11/17/24 13:00 11/17/24 13:00 Narrative Exam Physical Exam GENERAL: NAD, AAOx3 HEENT: Moist mucosa. Eyes open, symmetrical, & clear CARDIO: Heart RRR, no obvious murmurs PULM: No noted coughing/dyspnea CTA B/L, no R/W/R GI: Abdomen soft, nondistended, pain in RUQ and + CVA tenderness, BS+ SKIN/MSK/EXT: No wounds/rashes/edema/amputations, no pain on palpation. Pedal pulses present B/L NEURO: AAOx3, no focal neuro deficits, able to move all 4 extremities Objective Labs 11/19/24 05:17 11/19/24 05:17 Labs: Laboratory Results - last 24 hr 11/17/24 11/17/24 11/17/24 00:30 03:33 04:42 WBC 13.3 H RBC 3.99 L Hgb 9.9 L Hct 32.0 L MCV 80 MCH 24.8 L MCHC 30.9 L RDW Std Deviation 49.1 H Plt Count 423 Neut % (Auto) 63 Lymph % (Auto) 25 Estill % (Auto) 11 Eos % (Auto) 1 Baso % (Auto) 1 Neut # (Auto) 8.3 H Lymph # (Auto) 3.3 Estill # (Auto) 1.5 H Eos # (Auto) 0.1 Baso # (Auto) 0.1 Immature Gran # (Auto) 0.06 H Absolute Nucleated RBC 0.00 Immature Gran % 1 H Nucleated RBC % 0 ESR PT 10.9 INR 1.0 APTT 28.4 Sodium 139 Potassium 3.6 Chloride 107 Carbon Dioxide 21.5 Anion Gap 11 BUN 7 L Creatinine 0.8 Estim Creat Clear Calc 110.7 eGFR > 60 BUN/Creatinine Ratio 9 L Glucose 94 Calculated Osmolality 275 Lactic Acid 1.6 Calcium 9.0 Corrected Calcium 9.0 Phosphorus 3.7 Magnesium 1.7 Total Bilirubin < 0.2 L AST 20 ALT 26 Alkaline Phosphatase 117 H C-Reactive Prot, Quant Total Protein 7.8 Albumin 4.6 Globulin 3.2 Albumin/Globulin Ratio 1.4 Amylase 60 Lipase 33 Procalcitonin < 0.04 Ur Collection Type Clean Catch Urine Color Colorless A Urine Clarity Clear Urine pH 6.0 Ur Specific Woodruff 1.021 Urine Protein Negative Urine Glucose (UA) Negative Urine Ketones Negative Urine Blood Negative Urine Nitrite Negative Urine Bilirubin Negative Urine Urobilinogen (Auto) Negative Ur Leukocyte Esterase Negative Urine RBC < 1 Urine WBC 0 Ur Squamous Epith Cells 1 Urine Bacteria None Urine HCG, Qual Negative 11/17/24 11/17/24 06:21 11:10 WBC 8.2 D RBC 3.62 L Hgb 9.0 L Hct 29.9 L MCV 83 MCH 24.9 L MCHC 30.1 L RDW Std Deviation 51.1 H Plt Count 350 D Neut % (Auto) 51 Lymph % (Auto) 40 Estill % (Auto) 7 Eos % (Auto) 1 Baso % (Auto) 0 Neut # (Auto) 4.2 Lymph # (Auto) 3.3 Estill # (Auto) 0.6 Eos # (Auto) 0.1 Baso # (Auto) 0.0 Immature Gran # (Auto) 0.02 H Absolute Nucleated RBC 0.00 Immature Gran % 0 Nucleated RBC % 0 ESR 40 H PT INR APTT Sodium 135 L Potassium 4.1 D Chloride 105 Carbon Dioxide 24.9 Anion Gap 5 L BUN < 5 L Creatinine 0.6 Estim Creat Clear Calc 147.5 eGFR > 60 BUN/Creatinine Ratio 8 L Glucose 82 Calculated Osmolality 266 L Lactic Acid Calcium 8.6 Corrected Calcium 8.6 Phosphorus Magnesium Total Bilirubin 0.2 L AST 24 ALT 21 Alkaline Phosphatase 96 D C-Reactive Prot, Quant < 0.5 Total Protein 7.1 Albumin 4.3 Globulin 2.8 Albumin/Globulin Ratio 1.5 Amylase Lipase Procalcitonin Ur Collection Type Urine Color Urine Clarity Urine pH Ur Specific Woodruff Urine Protein Urine Glucose (UA) Urine Ketones Urine Blood Urine Nitrite Urine Bilirubin Urine Urobilinogen (Auto) Ur Leukocyte Esterase Urine RBC Urine WBC Ur Squamous Epith Cells Urine Bacteria Urine HCG, Qual Quality Measures Quality Measures none Assessment & Plan Assessment Current Active Medications: Generic Name Dose Route Start Last Admin Trade Name Freq PRN Reason Stop Dose Admin Acetaminophen 650 mg 11/17/24 05:43 Acetaminophen 325 Mg Tablet PO 12/17/24 05:27 Q6H PRN PAIN 1-3 OR FEVER > 101 Cholestyramine Resin 1 pkt 11/17/24 11:00 11/17/24 12:36 Cholestyramine/Sucrose 1 Pkt Ea PO 12/17/24 10:59 1 pkt QDAY AYSHA Administration Famotidine 20 mg 11/17/24 09:00 11/17/24 10:28 Famotidine Inj 10 Mg/Ml Vial 2 Ml IVP 12/17/24 08:59 20 mg BID AYSHA Administration Gabapentin 600 mg 11/17/24 09:00 11/17/24 10:29 Gabapentin 300 Mg Capsule PO 12/17/24 08:59 600 mg BID AYSHA Administration Hydroxychloroquine Sulfate 200 mg 11/17/24 09:00 11/17/24 10:32 Hydroxychloroquine 200 Mg Tablet PO 11/24/24 08:59 200 mg BID AYSHA Administration Lactated Ringer's 1,000 mls @ 100 mls/hr 11/17/24 03:05 11/17/24 06:57 Lactated Ringers IV 12/17/24 03:04 100 mls/hr .Q10H AYSHA Administration Metronidazole 500 mg in 100 mls @ 200 mls/hr 11/17/24 14:00 Flagyl 500 Mg Iv IV 11/24/24 13:59 Q8HR AYSHA Ceftriaxone Sodium/Dextrose 1 gm in 50 mls @ 100 mls/hr 11/18/24 09:00 Rocephin/D5w 1gm Iv Premix IV 11/25/24 08:59 QDAY AYSHA Lactobacillus Rhamnosus 1 cap 11/17/24 09:45 11/17/24 10:35 Lactobacillus Rhamnosus 1 Cap PO 12/17/24 09:44 1 cap BID AYSHA Administration Morphine Sulfate 4 mg 11/17/24 05:38 11/17/24 10:30 Morphine Sulf Inj 10 Mg/Ml Vial IVP 4 mg Q4HR PRN Administration PAIN SCALE 7-10 (Severe Ondansetron HCl 4 mg 11/17/24 05:28 11/17/24 08:03 Ondansetron Inj 2 Mg/Ml Inj 2 Ml IV 12/17/24 05:27 4 mg Q6H PRN Administration NAUSEA OR VOMITING Protocol Tramadol HCl 50 mg 11/17/24 09:40 Tramadol Hcl 50 Mg Tablet PO 11/22/24 09:36 Q6HR PRN PAIN SCALE 4-6 (Moderate Plan 39 y/o F with PMHx of systemic lupus erythematosus, fibromyalgia, history of cholecystectomy in 2023 who presented to the ER complaining of subjective fever, chills, nausea vomiting and diarrhea. #?Post-cholecystectomy syndrome #? Pyelonephritis #Diarrhea #Vomiting #Right upper quadrant pain Ordered stool studies, C. difficile PCR, patient received IV fluid boluses in ER, currently on maintenance IV fluid. 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 Patient also had + CVA tenderness however CT negative for pyelonephritis at this time. Continues with N/V/D, unable to tolerate po intake even with minimal po intake. Renal US shows minimal bilateral pyelonephritis ? IV ceftriaxone daily ? IV metronidazole every 8 hourly ? started on questran ? on lactobacillus ? IV Zofran as needed ? Maintenance IV fluids, as patient unable to tolerate p.o. ? clear liquid diet advance as tolerated ? IV morphine 4 mg every 4 hour as needed for pain #Lupus flare Ordered inflammatory markers, follow complement levels C3-C4, dsDNA levels CRP nl, ESR elevated, likely chronic, however patient continues to have pain - started on methylprednisolone 125mg q6hr ? Resume Plaquenil 200 mg twice daily ? Follow urine protein and creatinine ratio ? IV morphine for pain as needed ? tramadol 50mg BID added to regimen Case discussed with my senior Dr. Rosado and my attending Dr. Lalo Mendes MD PGY-1 Disposition: med surg DVT prophylaxis: lovenox GI prophylaxis:famotidine Diet: CLD Lines: PIV CODE STATUS: Full Attending Provider Attestation/Addendum 39-year-old female with SLE and history of cholecystectomy presenting with nausea and vomiting with differential diagnosis including postcholecystectomy syndrome versus lupus flareup. Will continue steroids and monitor closely. Low suspicion for infectious etiology at this point.I reviewed above note and agree with findings and plans. I have also personally examined the patient with medicine team and went over assessment and plan with medical team including internet marketing executive and resident physician.
--- NOTE | 2024-11-17 16:49 | XR_ITS ---
Examination: Retroperitoneal ultrasound, complete Technique: Multiple high resolution grayscale images of the retroperitoneum obtained, including kidneys and bladder. Exam date and time:November 17, 2024 1712 hours INDICATIONS: Bilateral flank pain beginning one week ago FINDINGS: Right kidney 9.6 cm renal cortex 2.0 cm Left kidney 9.9 cm cortex 2.1 cm Minimal bilateral renal parenchymal scar formation No hydronephrosis No bladder mass or bladder calculi Bladder prevoid volume 157 cc IMPRESSION: Minimal bilateral pyelonephritis No renal edema or abscess
[2024-11-17] MEDS: LIDOCAINE 5% 1 PATCH TOP (17:11)
[2024-11-17] MEDS: MethylPREDNISolone SOD SUCC 62.5 MG/ML 2ML VIAL 125 MG IVP (17:11)
--- NOTE | 2024-11-17 18:25 | PC.NURSE ---
Attempted to call resident regarding pt pain level with no response unsuccessful will continue to attempt
[2024-11-17] MEDS: VIT B12/Vit C/FA (Nephrovite) TABLET 1 TAB PO (20:01)
[2024-11-17] MEDS: HYOSCYAMINE SULF 0.125 MG TAB.SUBL 0.25 MG PO ×2 (20:01→22:22)
[2024-11-17] MEDS: ZOLPIDEM 5 MG TABLET PO (22:09)
[2024-11-18] VITALS (11 sets, daily range): BP systolic 99–158; BP diastolic 70–108; PULSE 89–132; RESP 16–98; TEMP 36–37.2; O2SAT 92–98
[2024-11-18] MEDS: MethylPREDNISolone SOD SUCC 62.5 MG/ML 2ML VIAL 125 MG IVP ×4 (00:20→20:08)
[2024-11-18] MEDS: traMADol HCL 50 MG TABLET 100 MG PO (00:25)
[2024-11-18] MEDS: metroNIDAZOLE/NS 500 MG IVPB 500 MG/100 ML BAG 200 MG IV ×3 (05:22→22:15)
[2024-11-18] MEDS: MORPHINE SULF INJ 10 MG/ML VIAL 4 MG IVP ×4 (05:22→20:08)
[2024-11-18] MEDS: HYOSCYAMINE SULF 0.125 MG TAB.SUBL 0.25 MG PO ×3 (05:23→22:14)
[2024-11-18] MEDS: ONDANSETRON INJ 2 MG/ML INJ 2 ML 4 MG IV ×2 (05:37→14:57)
[2024-11-18 06:24] LABS: Basophils % (Auto) 0 % (0-2.5); Eosinophils % (Auto) 0 % (0-10); Hematocrit 32.6 % (36.0-46.0); Hemoglobin 9.8 g/dL (12.0-16.0); Immature Granulocytes % (Auto) 1 % (0-0); Immature Granulocytes Auto 0.05 Thou/mm3 (0.00-0.00); Lymphocytes # (Auto) 1.4 Thou/mm3 (1.0-4.8); Lymphocytes % (Auto) 14 % (10-50); Mean Corpuscular HGB Conc 30.1 g/dl (31.0-37.0); Mean Corpuscular Hemoglobin 24.8 pg (25.0-35.0); Mean Corpuscular Volume 83 fL (80-100); Monocytes # (Auto) 0.1 Thou/mm3 (0.0-0.8); Monocytes % (Auto) 1 % (0-12); Neutrophils # (Auto) 8.5 Thou/mm3 (1.8-7.7); Neutrophils % (Auto) 85 % (37-80); Nucleated Red Blood Cell % 0 /100 WBC (0); Platelet Count 438 Thou/mm3 (140-440); RDW Standard Deviation 50.8 fL (36.4-46.3); Red Blood Count 3.95 Miln/mm3 (4.00-5.20)
[2024-11-18 07:07] LABS: Prothrombin Time 10.9 Seconds (9.0-12.2)
[2024-11-18 07:17] LABS: Alanine Aminotransferase 23 U/L (10-49); Albumin, Serum 4.6 gm/dL (3.5-5.0); Alkaline Phosphatase 109 U/L (46-116); Anion Gap 10 (7-16); Aspartate Amino Transferase 23 U/L (0-34); BUN/Creatinine Ratio 9 Ratio (12-20); Bilirubin,Direct < 0.1 mg/dL (0.0-0.3); Bilirubin,Total 0.2 mg/dL (0.3-1.2); Blood Urea Nitrogen 6 mg/dL (9-23); Carbon Dioxide 23.8 mMol/L (20.0-31.0); Cardiac Risk Estimate 4.1 RATIO (3.7-5.6); Chloride 103 mMol/L (98-107); Cholesterol 231 mg/dL (132-200); Creatinine (Component) 0.7 mg/dL (0.6-1.3); Glucose 135 mg/dL (74-106); HDL Cholesterol 56 mg/dL (40-60); LDL Cholesterol,Calculated 158 mg/dL (0-130); Osmolality,Calculated 273 (275-295); Phosphorous 3.2 mg/dL (2.4-5.1); Potassium 4.1 mMol/L (3.4-5.1); Sodium 137 mMol/L (136-145); Thyroid Stimulating Hormone 0.29 uIU/mL (0.55-4.78); Total Protein 7.7 gm/dL (5.7-8.2); Triglycerides 84 mg/dL (30-150); eGFR > 60 See Note
[2024-11-18 07:17] LABS: Amphetamine/Methamp Scrn,U Negative (Negative); Barbiturate Screen,Urine Negative (Negative); Benzodiazepines Screen,Urine Negative (Negative); Benzoylecgonine Screen, Ur Negative (Negative); Creatinine,Random Urine 39 mg/dL (30-125); Fentanyl Screen,Urine Negative (Negative); Opiate Screen,Urine Positive (Negative); Protein Total, Random Urine 9 mg/dL (1-14); THC Screen,Urine Negative (Negative)
[2024-11-18 07:33] LABS: Iron 23 mcg/dL (50-170); Percent Iron Saturation 5 % (20-55); Total Iron Binding Capacity 421 mcg/dL (250-425); Unsaturated Iron Binding 398 (225-295)
[2024-11-18] MEDS: LACTOBACILLUS RHAMNOSUS 1 CAP PO ×2 (09:05→20:08)
[2024-11-18] MEDS: VIT B12/Vit C/FA (Nephrovite) TABLET 1 TAB PO (09:05)
[2024-11-18] MEDS: HYDROXYCHLOROQUINE 200 MG TABLET PO ×2 (09:05→20:09)
[2024-11-18] MEDS: FAMOTIDINE INJ 10 MG/ML VIAL 2 ML 20 MG IVP ×2 (09:05→20:08)
[2024-11-18] MEDS: CHOLESTYRAMINE/SUCROSE 1 PKT EA PO (09:05)
[2024-11-18] MEDS: GABAPENTIN 300 MG CAPSULE 600 MG PO ×2 (09:05→22:15)
--- NOTE | 2024-11-18 10:01 | EKG_ITS ---
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
--- NOTE | 2024-11-18 10:03 | PC.NURSE ---
pt complaint feeling of heart palpitations or fluttering but no chest pain. VS b/p 127/74, hr 123. Dr Rosado was notified, see orders.
[2024-11-18 10:34] LABS: Free T4 (Free Thyroxine) 1.01 ng/dL (0.89-1.76)
--- NOTE | 2024-11-18 13:41 | PD.RESPRO ---
Documentation for date of: 11/18/24 Subjective Subjective Interval history: Patient seen today at the bedside found awake, alert, oriented x 3. No overnight events reported. Vitals and labs reviewed. Patient currently reporting having blurry vision, will consult neurology in regards to this new finding. As far as her presenting symptoms seems to be likely related to lupus flare likely lupus enteritis will continue at this time on IV steroid medication. Attempted to reach out to patient's template inspector in [place] however unable to reach. Will continue current management at this time. Exam Vital Signs Temp Pulse Resp BP Pulse Ox O2 Del Method 97.9 F 123 H 17 127/75 97 Room Air 11/18/24 10:00 11/18/24 10:00 11/18/24 10:00 11/18/24 10:00 11/18/24 10:11/18/24 10:00 Narrative Exam Physical Exam GENERAL: NAD, AAOx3 HEENT: Moist mucosa. Eyes open, symmetrical, & clear CARDIO: Heart RRR, no obvious murmurs PULM: No noted coughing/dyspnea CTA B/L, no R/W/R GI: Abdomen soft, nondistended, pain in RUQ and + CVA tenderness, BS+ SKIN/MSK/EXT: No wounds/rashes/edema/amputations, no pain on palpation. Pedal pulses present B/L NEURO: AAOx3, no focal neuro deficits, able to move all 4 extremities Objective Labs 11/19/24 05:17 11/19/24 05:17 Labs: Laboratory Results - last 24 hr 11/18/24 11/18/24 05:25 05:40 WBC 10.0 RBC 3.95 L Hgb 9.8 L Hct 32.6 L MCV 83 MCH 24.8 L MCHC 30.1 L RDW Std Deviation 50.8 H Plt Count 438 D Neut % (Auto) 85 H Lymph % (Auto) 14 [place] % (Auto) 1 Eos % (Auto) 0 Baso % (Auto) 0 Neut # (Auto) 8.5 H Lymph # (Auto) 1.4 [place] # (Auto) 0.1 Eos # (Auto) 0.0 Baso # (Auto) 0.0 Immature Gran # (Auto) 0.05 H Absolute Nucleated RBC 0.00 Immature Gran % 1 H Nucleated RBC % 0 PT 10.9 INR 1.0 Sodium 137 Potassium 4.1 Chloride 103 Carbon Dioxide 23.8 Anion Gap 10 BUN 6 L Creatinine 0.7 Estim Creat Clear Calc 124.0 eGFR > 60 BUN/Creatinine Ratio 9 L Glucose 135 H D Calculated Osmolality 273 L Calcium 9.0 Phosphorus 3.2 Magnesium 2.0 Iron 23 L TIBC 421 Iron Saturation 5 L Unsat Iron Binding 398 H Total Bilirubin 0.2 L Direct Bilirubin < 0.1 AST 23 ALT 23 Alkaline Phosphatase 109 Total Protein 7.7 Albumin 4.6 Triglycerides 84 Cholesterol 231 H LDL Cholesterol, Calc 158 H HDL Cholesterol 56 Cholesterol/HDL Ratio 4.1 TSH 0.29 L Free T4 1.01 Ur Random Creatinine 39 U Random Total Protein 9 Urine Opiates Screen Positive A Urine Fentanyl Screen Negative Ur Barbiturates Screen Negative U Amphetamin/Meth Scrn Negative U Benzodiazepines Scrn Negative U Cocaine Metab Screen Negative U Marijuana (THC) Screen Negative Quality Measures Quality Measures none Assessment & Plan Assessment Current Active Medications: Generic Name Dose Route Start Last Admin Trade Name Freq PRN Reason Stop Dose Admin Acetaminophen 1,000 mg 11/18/24 08:45 Acetaminophen 500 Mg Tablet PO 12/17/24 05:27 Q6H PRN PAIN 1-3 OR FEVER > 99 Atorvastatin Calcium 40 mg 11/18/24 21:00 Atorvastatin Calcium 20 Mg Tablet PO 12/18/24 20:59 HS AYSHA Cholestyramine Resin 1 pkt 11/17/24 11:00 11/18/24 09:05 Cholestyramine/Sucrose 1 Pkt Ea PO 12/17/24 10:59 1 pkt QDAY AYSHA Administration Famotidine 20 mg 11/17/24 09:00 11/18/24 09:05 Famotidine Inj 10 Mg/Ml Vial 2 Ml IVP 12/17/24 08:59 20 mg BID AYSHA Administration Gabapentin 600 mg 11/17/24 09:00 11/18/24 09:05 Gabapentin 300 Mg Capsule PO 12/17/24 08:59 600 mg BID AYSHA Administration Hydroxychloroquine Sulfate 200 mg 11/17/24 09:00 11/18/24 09:05 Hydroxychloroquine 200 Mg Tablet PO 11/24/24 08:59 200 mg BID AYSHA Administration Hyoscyamine 0.25 mg 11/18/24 22:00 Hyoscyamine Sulf 0.125 Mg Tab.Subl PO 12/18/24 21:59 TID AYSHA Metronidazole 500 mg in 100 mls @ 200 mls/hr 11/17/24 14:00 11/18/24 13:15 Flagyl 500 Mg Iv IV 11/24/24 13:59 200 mls/hr Q8HR AYSHA Administration Lactobacillus Rhamnosus 1 cap 11/17/24 09:45 11/18/24 09:05 Lactobacillus Rhamnosus 1 Cap PO 12/17/24 09:44 1 cap BID AYSHA Administration Methylprednisolone Sodium Succinate 125 mg 11/17/24 18:00 11/18/24 11:57 Methylprednisolone Sod Succ 62.5 Mg/Ml 2ml Vial IVP 11/24/24 17:59 125 mg Q6HR AYSHA Administration Morphine Sulfate 4 mg 11/17/24 18:48 11/18/24 09:45 Morphine Sulf Inj 10 Mg/Ml Vial IVP 11/22/24 16:49 4 mg Q4HR PRN Administration PAIN SCALE 7-10 (Severe Ondansetron HCl 4 mg 11/17/24 05:28 11/18/24 05:37 Ondansetron Inj 2 Mg/Ml Inj 2 Ml IV 12/17/24 05:27 4 mg Q6H PRN Administration NAUSEA OR VOMITING Protocol Tramadol HCl 100 mg 11/17/24 18:46 11/18/24 00:25 Tramadol Hcl 50 Mg Tablet PO 11/22/24 09:39 100 mg Q8HR PRN Administration PAIN SCALE 4-6 (Moderate Vitamin B Complex/Vit C/Folic Acid 1 tab 11/17/24 19:00 11/18/24 09:05 Vit B12/Vit C/Fa (Nephrovite) Tablet PO 12/17/24 18:59 1 tab QDAY AYSHA Administration Zolpidem Tartrate 5 mg 11/17/24 16:54 11/17/24 22:09 Zolpidem 5 Mg Tablet PO 12/17/24 16:53 5 mg HS PRN Administration INSOMNIA Plan 39 y/o F with PMHx of systemic lupus erythematosus, fibromyalgia, history of cholecystectomy in 2023 who presented to the ER complaining of subjective fever, chills, nausea vomiting and diarrhea. #Lupus enteritis? #Lupus flare #Acute diarrhea-resolving Patient presented with nausea vomiting diarrhea, unable to tolerate any type of p.o. intake including her lupus medications. On physical exam patient does have abdominal pain, with joint pain in the hips, knees and hands, as well as positive CVA tenderness, imaging studies show bilateral minimal pyelonephritis, more likely to be inflammatory changes. CT findings show small bowel colonic ileus Diarrhea etiology could be lupus enteritis however, will not exclude other etiologies including infectious, postcholecystectomy syndrome Patient endorses diarrhea has improved at this time. ? on methylprednisolone 125mg q 6hours ?hydroxychloroquine 200mg BID ? f/u stool studies ? IV ceftriaxone ? IV metronidazole ? On Questran ? On lactobacilli ? IV Zofran as needed ? On IV fluids ? Start clear liquid diet and stop advance as tolerated ? Pain regimen #Blurry vision Patient reported blurry vision, onset about 1 day ago while looking at the TV ? Neurology consulted, appreciate recommendations ? Monitor at this time. Case discussed with my senior Dr. Rosado and my attending Dr. Lalo Mendes MD PGY-1 Disposition: med surg DVT prophylaxis: lovenox GI prophylaxis:famotidine Diet: CLD Lines: PIV CODE STATUS: Full Attending Provider Attestation/Addendum 39-year-old female with SLE and history of cholecystectomy presenting with nausea and vomiting with differential diagnosis including postcholecystectomy syndrome versus lupus enteritis. Will continue steroids and monitor closely. Low suspicion for infectious etiology at this point.I reviewed above note and agree with findings and plans. I have also personally examined the patient with medicine team and went over assessment and plan with medical team including internal salesperson and resident physician.
--- NOTE | 2024-11-18 14:16 | PC.NURSE ---
NOTIFIED DR. HARDING OF PATIENT COMPLAINING OF CHEST PALPITATIONS AND CHEST PRESSURE . PT HEART RATE NOTED TO BE 120. MD ACKNOWLEDGED. OMD STATED HE WILL PLACE ORDERS.
--- NOTE | 2024-11-18 14:20 | EKG_ITS ---
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
[2024-11-18] MEDS: LABETALOL INJ 5 MG/ML VIAL 20 ML 10 MG IVP (14:43)
--- NOTE | 2024-11-18 14:43 | ECHO_ITS ---
Transthoracic Echo Report Ht (in): 63 Wt (lb): 239 Exam Location: Portable Status: Inpatient Warehouse Loader: MIKE Pickering^^^^ Indications: Procedure Performed: BP: / HR: 99 Technical Quality: Technically difficult study MEASUREMENTS (Male / Female) Normal Values 2D ECHO LV Diastolic Diameter PLAX 3.8 cm 4.2 - 5.9 / 3.9 - 5.3 cm LV Systolic Diameter PLAX 2.6 cm IVS Diastolic Thickness 1.1 cm 0.6 - 1.0 / 0.6 - 0.9 cm LVPW Diastolic Thickness 1.1 cm 0.6 - 1.0 / 0.6 - 0.9 cm LV Relative Wall Thickness 0.6 LVOT Diameter 1.8 cm Aortic Root Diameter 2.7 cm LA Systolic Diameter LX 3.7 cm 3.0 - 4.0 / 2.7 - 3.8 cm LA Volume Index 21.2 cm?/m? 16 - 28 cm?/m? DOPPLER AV Peak Velocity 181.7 cm/s AV Peak Gradient 13.2 mmHg AV Mean Gradient 6.5 mmHg AV Velocity Time Integral 31.6 cm LVOT Peak Velocity 143.0 cm/s LVOT Peak Gradient 8.2 mmHg LVOT Velocity Time Integral 34.0 cm LVOT Cardiac Index 3798.2 cm?/min?m? AV Area Cont Eq vti 2.7 cm? AV Area Cont Eq pk 2.0 cm? MV Area PHT 3.7 cm? Mitral E Point Velocity 81.8 cm/s Mitral A Point Velocity 64.6 cm/s Mitral E to A Ratio 1.3 LV E' Lateral Velocity 18.7 cm/s Mitral E to LV E' Lateral Ratio 4.4 LV E' Septal Velocity 14.1 cm/s Mitral E to LV E' Septal Ratio 5.8 TR Peak Velocity 215.0 cm/s TR Peak Gradient 18.5 mmHg PV Peak Velocity 154.0 cm/s PV Peak Gradient 9.5 mmHg RVOT Peak Velocity 62.8 cm/s FINDINGS Left Ventricle Normal left ventricular size, wall thickness, systolic function with no obvious regional wall motion abnormalities. Regional wall motion abnormalities are present. There is grade I diastolic dysfunction of the left ventricle (impaired relaxation pattern). The left ventricular ejection fraction is normal, estimated at 55- 60%. Right Ventricle The right ventricle is normal in size and systolic function. The estimated right ventricular systolic pressure, 25 mmHg. Left Atrium The left atrium is normal by two-dimensional, color flow and Doppler imaging with no structural abnormalities, no thrombus formation present. Right Atrium The right atrium is normal by two-dimensional imaging, color flow and Doppler imaging with no structural abnormalities, no thrombus formation present. Atrial Septum The interatrial septum appears normal with no evidence of a shunt. Aorta The aorta is normal by two-dimensional, color flow and Doppler interrogation. Mitral Valve Trace to mild mitral regurgitation. Mild mitral annular calcification. Aortic Valve Aortic valve sclerosis. Tricuspid Valve There is mild tricuspid valve regurgitation. Pulmonic Valve Trivial pulmonic valve regurgitation. Vessels The pulmonary artery appears normal. The inferior vena cava pulmonary and hepatic veins appear normal. Pericardium The pericardium is normal by two-dimensional imaging. There is no significant pericardial effusion. CONCLUSIONS Indication: Chest pain-rule out pericarditis Normal LV size and function with an estimated EF of 55 to 60%. Normal diastolic function. Normal RV size and function with normal estimated RVSP of 25-30 mmHg. Trace to mild MR and TR. Mild aortic valve sclerosis without stenosis. No pericardial effusion. Driss Faustin (Electronically Signed) Final Date: 18 Nov 2024 20:00
[2024-11-18] MEDS: BusPIRone HCL 5 MG TABLET 10 MG PO ×2 (14:46→20:09)
--- NOTE | 2024-11-18 14:49 | PD.RESEVENT ---
Documentation for date of: 11/18/24 Event Note Event Note: In the afternoon rapid response was called due to chest pain Chest pain was described as 10 out of 10 pain pressure-like sensation radiating to left upper extremity. Vitals show BP 151/108, heart rate 127. EKG was ordered which showed sinus tachycardia. Troponins were ordered, echo was ordered, cardiology consult placed, lactic acid and procalcitonin were also ordered. Labetalol 10mg IVx1, Morphine 4 mg IV x 1 given, Ativan 2 mg x 1 given. repeat EKG was ordered within 1 hour. Will continue to follow closely. Physical Exam GENERAL: AAOx3, anxious, acute distress HEENT: Moist mucosa. Eyes open, symmetrical, & clear CARDIO: Heart RRR, no obvious murmurs, chest pain radiating to the LUE PULM: No noted coughing/dyspnea CTA B/L, no R/W/R GI: Abdomen soft, nondistended, no pain on palpation. BSx4 SKIN/MSK/EXT: No wounds/rashes/edema/amputations, no pain on palpation. Pedal pulses present B/L NEURO: AAOx3, no focal neuro deficits, able to move all 4 extremities Case discussed with my senior Dr. Rosado my attending Dr. Lalo Mendes MD PGY-1
[2024-11-18] MEDS: LORazepam 2 MG/ML VIAL IVP (14:57)
--- NOTE | 2024-11-18 14:57 | PC.NURSE ---
rapid response called at 1431, see flow sheet. pt upgraded to tele, report given to DANNY Alvarez and DANNY Ross
[2024-11-18 15:15] LABS: Lactate (Lactic Acid) 4.4 mMol/L (0.4-2.0)
--- NOTE | 2024-11-18 15:28 | PD.RESCONSUL ---
HPI Data of Consult Requesting Physician: Anna May MD Admitting Provider: Jerry Faith MD Attending Provider: Anna May MD Primary Care Provider: Av Gracia PA-C Consult Narrative Reason for consult: headache, blurry vision History of present illness: The patient is a 39 year old female female with previous medical history of lupus erythematosus, fibromyalgia who was admitted with diarrhea, nausea, vomiting, subjective fever, chills. She also reports bilateral headache and neck pain, throbbing pain in the eyes, blurry vision. She reports a longstanding history of headaches, not sure about family history of headaches since she's not in contact with her family. Reports taking tylenol and ibuorifen for headache every 3-4 hours every days. She also reports that her headache improves when she put scented oil on the temples. Reports that morphine is not helping with the pain. Patient reports feeling anxious. She denies increased sound and light sensitivity. Denies possible triggers for headache. Patient is saying that she wants 'just a day when it stops' regarding her headache. She is also reports that she had lab work and scans done which were reported to her as normal. She also reports pain and swelling in the left knee. Social history: denies smoking cigarettes, alcohol use, recreational substances, lives with her boyfriend. Medications: gabapentin, venlafaxine, plaquenil, cyclobenzaprine, trazodone, nsaids for headache Allergies: ciprofloxacine, ketorolac, promethazine, contrast dye cc:: cc: Anna May MD Exam Vital Signs Temp Pulse Resp BP Pulse Ox O2 Del Method 96.8 F 127 H 19 151/108 H 93 L Room Air 11/18/24 14:31 11/18/24 14:43 11/18/24 14:11/18/24 14:43 11/18/24 14:11/18/24 12:00 Narrative Exam Gen: Well-developed and well-nourished. HEENT: NCAT, PERRLA, EOMI, MMM, anicteric conjunctivae. CVS: normal S1 and S2. RRR. No M/R/G. Resp: CTA B/L. No rhonchi, rales, crackles or wheezing. MSK: Good ROM in BUE & BLE. No edema or rash. Neuro: CN II-XII grossly intact. Strength 5/5 in BUE & BLE. Alert and oriented x3. Psych: cries when talking about her headache. Reports feeling anxious. Results Labs 11/18/24 05:25 11/18/24 05:25 Labs: Short CBC 11/18/24 Range/Units 05:25 WBC 10.0 (3.6-11.0) Thou/mm3 Hgb 9.8 L (12.0-16.0) g/dL Hct 32.6 L (36.0-46.0) % Plt Count 438 D (140-440) Thou/mm3 BMP 11/18/24 05:25 Sodium 137 Potassium 4.1 Chloride 103 Carbon Dioxide 23.8 BUN 6 L Creatinine 0.7 Glucose 135 H D Calcium 9.0 Liver Function 11/18/24 Range/Units 05:25 Total Bilirubin 0.2 L (0.3-1.2) mg/dL Direct Bilirubin < 0.1 (0.0-0.3) mg/dL AST 23 (0-34) U/L ALT 23 (10-49) U/L Alkaline Phosphatase 109 (46-116) U/L Albumin 4.6 (3.5-5.0) gm/dL Quality Measures Quality Measures VTE prophylaxis Medications Home Medications and Allergies Allergies Allergy/AdvReac Type Severity Reaction Status Date / Time ciprofloxacin (From Cipro) Allergy Severe Rash Verified 02/25/24 14:33 Iodinated Contrast Media Allergy Severe Hives Verified 02/25/24 14:33 ketorolac (From Toradol) Allergy Severe Rash Verified 02/25/24 14:33 promethazine (From Phenergan) Allergy Severe Rash Verified 02/25/24 14:33 Visit Medications Acetaminophen (Acetaminophen 500 Mg Tablet) 1,000 mg PO Q6H PRN PRN Reason: PAIN 1-3 OR FEVER > 99 Stop: 12/17/24 05:27 Atorvastatin Calcium (Atorvastatin Calcium 20 Mg Tablet) 40 mg PO HS AYSHA Stop: 12/18/24 20:59 Buspirone HCl (Buspirone Hcl 5 Mg Tablet) 10 mg PO BID AYSHA Stop: 12/18/24 14:14 Last Admin: 11/18/24 14:46 Dose: 10 mg Cholestyramine Resin (Cholestyramine/Sucrose 1 Pkt Ea) 1 pkt PO QDAY [facility] Stop: 12/17/24 10:59 Last Admin: 11/18/24 09:05 Dose: 1 pkt Famotidine (Famotidine Inj 10 Mg/Ml Vial 2 Ml) 20 mg IVP BID [facility] Stop: 12/17/24 08:59 Last Admin: 11/18/24 09:05 Dose: 20 mg Gabapentin (Gabapentin 300 Mg Capsule) 600 mg PO BID [facility] Stop: 12/17/24 08:59 Last Admin: 11/18/24 09:05 Dose: 600 mg Hydroxychloroquine Sulfate (Hydroxychloroquine 200 Mg Tablet) 200 mg PO BID [facility] Stop: 11/24/24 08:59 Last Admin: 11/18/24 09:05 Dose: 200 mg Hyoscyamine (Hyoscyamine Sulf 0.125 Mg Tab.Subl) 0.25 mg PO TID [facility] Stop: 12/18/24 21:59 Metronidazole (Flagyl 500 Mg Iv) 500 mg in 100 mls @ 200 mls/hr IV Q8HR [facility] Stop: 11/24/24 13:59 Last Admin: 11/18/24 13:15 Dose: 200 mls/hr Sodium Chloride (Ns) 1,000 mls @ 999 mls/hr IV .Q1H1M ONE Stop: 11/18/24 16:16 Lactobacillus Rhamnosus (Lactobacillus Rhamnosus 1 Cap) 1 cap PO BID [facility] Stop: 12/17/24 09:44 Last Admin: 11/18/24 09:05 Dose: 1 cap Methylprednisolone Sodium Succinate (Methylprednisolone Sod Succ 62.5 Mg/Ml 2ml Vial) 125 mg IVP Q6HR [facility] Stop: 11/24/24 17:59 Last Admin: 11/18/24 11:57 Dose: 125 mg Morphine Sulfate (Morphine Sulf Inj 10 Mg/Ml Vial) 4 mg IVP Q4HR PRN PRN Reason: PAIN SCALE 7-10 (Severe Stop: 11/22/24 16:49 Last Admin: 11/18/24 09:45 Dose: 4 mg Ondansetron HCl (Ondansetron Inj 2 Mg/Ml Inj 2 Ml) 4 mg IV Q6H PRN; Protocol PRN Reason: NAUSEA OR VOMITING Stop: 12/17/24 05:27 Last Admin: 11/18/24 14:57 Dose: 4 mg Tramadol HCl (Tramadol Hcl 50 Mg Tablet) 100 mg PO Q8HR PRN PRN Reason: PAIN SCALE 4-6 (Moderate Stop: 11/22/24 09:39 Last Admin: 11/18/24 00:25 Dose: 100 mg Vitamin B Complex/Vit C/Folic Acid (Vit B12/Vit C/Fa (Nephrovite) Tablet) 1 tab PO QDAY AYSHA Stop: 12/17/24 18:59 Last Admin: 11/18/24 09:05 Dose: 1 tab Zolpidem Tartrate (Zolpidem 5 Mg Tablet) 5 mg PO HS PRN PRN Reason: INSOMNIA Stop: 12/17/24 16:53 Last Admin: 11/17/24 22:09 Dose: 5 mg Discontinued Medications Acetaminophen (Acetaminophen 325 Mg Tablet) 650 mg PO X1 ONE Stop: 11/17/24 00:21 Last Admin: 11/17/24 00:51 Dose: 650 mg Acetaminophen (Acetaminophen 325 Mg Tablet) 650 mg PO Q6H PRN PRN Reason: PAIN OR FEVER > 101 Stop: 12/17/24 05:27 Acetaminophen (Acetaminophen 325 Mg Tablet) 650 mg PO Q6H PRN PRN Reason: PAIN 1-3 OR FEVER > 101 Stop: 12/17/24 05:27 Acetaminophen (Acetaminophen 325 Mg Tablet) 1,000 mg PO Q6H PRN PRN Reason: PAIN 1-3 OR FEVER > 99 Stop: 12/17/24 05:27 Alprazolam (Alprazolam 0.25 Mg Tablet) 0.5 mg PO X1 ONE Stop: 11/18/24 14:36 Last Admin: 11/18/24 14:48 Dose: Not Given Diphenhydramine HCl (Diphenhydramine Inj 50 Mg/Ml Vial) 25 mg IV X1 ONE Stop: 11/17/24 03:43 Last Admin: 11/17/24 04:08 Dose: 25 mg Enoxaparin Sodium (Enoxaparin Sod Inj 40 Mg/0.4 Ml Syringe) 40 mg SC QDAY AYSHA Stop: 12/01/24 08:59 Hydromorphone HCl (Hydromorphone Inj 2 Mg/Ml Vial) 0.5 mg IVP X1 ONE Stop: 11/17/24 07:52 Last Admin: 11/17/24 08:03 Dose: 0.5 mg Hyoscyamine (Hyoscyamine Sulf 0.125 Mg Tab.Subl) 0.25 mg PO Q4HR AYSHA Stop: 12/17/24 18:59 Last Admin: 11/18/24 10:29 Dose: 0.25 mg Lactated Ringer's (Lactated Ringers) 1,000 mls @ 999 mls/hr IV .Q1H1M ONE Stop: 11/17/24 04:04 Last Infusion: 11/17/24 05:00 Dose: Infused Lactated Ringer's (Lactated Ringers) 1,000 mls @ 100 mls/hr IV .Q10H AYSHA Stop: 12/17/24 03:04 Last Admin: 11/17/24 17:09 Dose: 100 mls/hr Lactated Ringer's (Lactated Ringers) 1,000 mls @ 999 mls/hr IV .Q1H1M ONE Stop: 11/17/24 04:06 Last Infusion: 11/17/24 04:56 Dose: Infused Ceftriaxone Sodium/Dextrose (Rocephin/D5w 1gm Iv Premix) 1 gm in 50 mls @ 100 mls/hr IV X1 ONE Stop: 11/17/24 03:35 Last Infusion: 11/17/24 04:17 Dose: Infused Metronidazole (Flagyl 500 Mg Iv) 500 mg in 100 mls @ 100 mls/hr IV X1 ONE Stop: 11/17/24 04:37 Last Infusion: 11/17/24 06:45 Dose: Infused Magnesium Sulfate/Dextrose (Magnesium Sulfate Ivpb) 1 gm in 100 mls @ 100 mls/hr IV X1 ONE Stop: 11/17/24 04:56 Last Infusion: 11/17/24 06:06 Dose: Infused Magnesium Sulfate (Magnesium Sulfate Ivpb) 2 gm in 50 mls @ 25 mls/hr IV X1 ONE Stop: 11/17/24 07:59 Last Admin: 11/17/24 06:57 Dose: 25 mls/hr Ceftriaxone Sodium/Dextrose (Rocephin/D5w 1gm Iv Premix) 1 gm in 50 mls @ 100 mls/hr IV QDAY AYSHA Stop: 11/25/24 08:59 Ciprofloxacin/Dextrose (Cipro Ivpb) 400 mg in 200 mls @ 200 mls/hr IV Q12HR AYSHA Stop: 11/24/24 08:43 Ceftriaxone Sodium/Dextrose (Rocephin/D5w 1gm Iv Premix) 1 gm in 50 mls @ 100 mls/hr IV QDAY AYSHA Stop: 11/25/24 08:59 Labetalol HCl (Labetalol Inj 5 Mg/Ml Vial 20 Ml) 10 mg IVP X1 ONE Stop: 11/18/24 14:18 Last Admin: 11/18/24 14:43 Dose: 10 mg Lidocaine (Lidocaine 5% 1 Patch) 1 patch TOP X1 ONE Stop: 11/17/24 16:28 Last Admin: 11/17/24 17:11 Dose: 1 patch Lorazepam (Lorazepam 2 Mg/Ml Vial) 2 mg IVP X1 ONE Stop: 11/18/24 14:52 Last Admin: 11/18/24 14:57 Dose: 2 mg Morphine Sulfate (Morphine Sulf Inj 10 Mg/Ml Vial) 2 mg IVP X1 ONE Stop: 11/17/24 03:04 Last Admin: 11/17/24 03:40 Dose: 2 mg Morphine Sulfate (Morphine Sulf Inj 10 Mg/Ml Vial) 4 mg IVP Q4HR PRN PRN Reason: PAIN SCALE 7-10 (Severe Last Admin: 11/17/24 17:10 Dose: 4 mg Morphine Sulfate (Morphine Sulf Inj 10 Mg/Ml Vial) 2 mg IVP Q4HR PRN PRN Reason: PAIN SCALE 7-10 (Severe Stop: 11/22/24 16:49 Morphine Sulfate (Morphine Sulf Inj 10 Mg/Ml Vial) 4 mg IVP X1 ONE Stop: 11/18/24 14:36 Last Admin: 11/18/24 14:36 Dose: 4 mg Ondansetron HCl (Ondansetron Inj 2 Mg/Ml Inj 2 Ml) 4 mg IV X1 ONE; Protocol Stop: 11/17/24 03:08 Last Admin: 11/17/24 03:39 Dose: 4 mg Pantoprazole Sodium (Pantoprazole Inj 40 Mg Vial) 40 mg IVP X1 ONE Stop: 11/17/24 03:08 Last Admin: 11/17/24 03:35 Dose: 40 mg Sennosides (Senna Tablet) 2 tab PO BID PRN; Protocol PRN Reason: CONSTIPATION Stop: 12/17/24 05:27 Tramadol HCl (Tramadol Hcl 50 Mg Tablet) 50 mg PO Q6HR PRN PRN Reason: PAIN Stop: 11/22/24 09:36 Tramadol HCl (Tramadol Hcl 50 Mg Tablet) 50 mg PO X1 ONE Stop: 11/17/24 09:38 Last Admin: 11/17/24 10:29 Dose: 50 mg Tramadol HCl (Tramadol Hcl 50 Mg Tablet) 50 mg PO Q6HR PRN PRN Reason: PAIN SCALE 4-6 (Moderate Stop: 11/22/24 09:36 Assessment & Plan Plan The patient is a 39 year old female female with previous medical history of lupus erythematosus, fibromyalgia who was admitted with diarrhea, nausea, vomiting, subjective fever, chills. She also reports bilateral headache and neck pain, throbbing pain in the eyes, blurry vision. #Headache #Medication overuse #Tension headache #Blurry vision #Fibromyalgia Ddx: tension headache vs migraine with medication overuse contributing. Patient has a history of near sidedness, reports that blurry vision appears with headache. Plan: - decrease use of pain medication - patient was recommended to start headache diary - education provided regarding medication overuse - consider switching to cymbalta when the patient is able to tolerate PO meds - gabapentin 600 mg TID - stop tramadol (risk of serotonine syndrome in combination with venlafaxine) - try to refrain from opioids due to them increasing nausea #Lupus enteritis? #Lupus flare #Acute diarrhea-resolving - management per primary team Plan of care discussed with attending Dr. Espinal. Breonna Manzo MD, PGY 1. Attending Provider Attestation/Addendum I independently reviewed the patient chart and I agree with resident's findings, assessment and plan of care. Her persistent headache could have been related to medication overuse/rebound headache from frequent NSAID/opiates; serotonin syndrome; fibromyalgia exacerbation. Advised to stop tramadol and switch Effexor to Cymbalta for dual benefits Increase gabapentin to 3 times a day. I do not think the patient has lupus cerebritis and will not need a switch from methylprednisolone to dexamethasone. Consider getting the MRI brain with and without contrast and EEG to evaluate further.
[2024-11-18 15:40] LABS: Procalcitonin 0.05 ng/ml (0.0-0.49); Troponin I < 0.002 ng/mL (0.0-0.045)
[2024-11-18] MEDS: SODIUM CHLORIDE 0.9% 1000 ML 1,000 ML 999 ML IV (15:45)
[2024-11-18 18:06] LABS: Reflex Lactate? Y
[2024-11-18 18:45] LABS: Lactic Acid, 3 HR 2.1 mMol/L (0.4-2.0)
--- NOTE | 2024-11-18 18:49 | ESCONSULT_ITS ---
HPI Data of Consult Requesting Physician: Anna May MD Admitting Provider: Jerry Faith MD Attending Provider: Anna May MD Primary Care Provider: Av Gracia PA-C Consult Narrative History of present illness: 39-year-old female with PMHx of SLE, fibromyalgia, presenting to the ED with subjective fever, chills, nausea and vomiting and diarrhea. She chronic SLE, has been unable to obtain PLAQUENIL, and has not taken over the last 4 days. Reports worsening joint pain throughout, shoulder pain, headaches, and neck pain. Reports an episode of chest pain radiating to her left arm, no diaphoresis, that started the night before admission. She states she's had similar pain in the past, however she is concerned given the fact that she has been out of SLE medication. On presentation, BP 157/86, HR 106, RR 20, satting 98% on room air. CHEM panel significant for ALP 117, lactic acid was normal at 1.6. CBC showed WBC 13.3, Hgb 9.9 around baseline, PLT 455. She was initially admitted for acute enteritis, possible lupus exacerbation, and has been started on STEROIDS and METRONIDAZOLE. Labs on the following day were significant for ESR of 40, normal CRP, TG 84, cholesterol 231, LDL 158, HDL 56, TSH 0.29, free T4 1.01, low iron storage with iron 23, TIBC 421, binding capacity of 398. Leukocytosis improved to 8.2, Hgb decreased to 9.0, likely dilutional. Platelets improved to 350. However, this afternoon she had RR for worsening chest pain, again radiating to the left arm, described the pain as a heavy sensation, pressure-like, rated 8 out of 10 in severity. Denied diaphoresis. Labs were significant for lactic acid 4.4, downtrended to 2.1 after fluids. Troponin was negative. EKG showed sinus tachycardia, no T wave abnormalities or CO segment depression. Stat echocardiogram was performed to rule out pericarditis and showed no evidence of pericardial effusion, EF 55-60%, normal LV/RV size and function, normal diastolic function, trace mild MR/TR, mild aortic valve sclerosis without stenosis. We had a long discussion with patient at bedside. She states she is under a lot of family stress, currently dealing with chronically ill mother who was chronically trached secondary to end-stage COPD. She is . She has 2 children who currently lives with her and Saturday. Most of her family, including her mother are in [place]. She has been living here for little with her boyfriend, evidently she doesn't feel like she has enough family support around. On further evaluation, she had reproducible pain over the chest, shoulders, neck, arms and lower extremities. She denies history of cardiac symptoms such as palpitations, shortness of breath, orthopnea, exertional dyspnea, or lower extremity swelling. No lower extremity edema noted on exam. Heart and lung auscultations were normal. At this time, given extensive workup, normal troponin, normal EKG findings, normal echocardiogram, her symptoms are most likely noncardiac. Low suspicion for pericarditis, given above finding, normal CRP. Elevated ESR likely chronic. Most likely she has musculoskeletal pain, given history of fibromyalgia. There may be a component of anxiety as evident on exam. However we'll trend troponin in the AM. Recommended resuming home FLEXERIL, pain management, anxiety management. cc:: cc: Anna May MD Review of Systems Review of Systems Narrative Review of Systems: 12 system review was negative other than above mentioned. Past Medical History Past Medical History MUSCULOSKELETAL: Positive Fibromyalgia Family History OTHER FAMILY HX: Mother with end-stage COPD, chronically trached. Maternal grandfather of unknown heart disease. Does not know her father's history. Surgical History OTHER SURGICAL HX: appendectomy. Ovarian cyst removal. Social History SOCIAL: Drinks alcohol occasionally, denies tobacco or drug use. Exam Vital Signs Temp Pulse Resp BP Pulse Ox O2 Del Method 98.9 F 97 18 131/96 H 96 Room Air 11/18/24 16:00 11/18/24 16:00 11/18/24 16:00 11/18/24 16:11/18/24 16:11/18/24 16:00 Narrative Exam GENERAL * Obese, otherwise well-appearing adult female, in mild distress, on room air, satting well * Had reproducible musculoskeletal pain and joint pain throughout; not limited to head, neck, chest, shoulders, arms and lower extremities. HEENT * NCAT.?MARKELL. Oral mucosa is moist. Patent Nares NECK * Supple, nontender, no thyromegaly, no meningismus, no JVD, no step offs CHEST * RRR, no m/g/r * CTAB, no w/r/r. Symmetrical chest rise. No intercostal subcostal retraction * Atraumatic, nontender, no crepitus, symmetrical expansion. ABDOMEN * Soft, flat, nontender. No guarding/rebound tenderness/masses. * Bowel sounds presents EXTREMITIES * No edema/cyanosis.? SKIN * Warm and dry, no jaundice/rashes. NEUROMUSCULAR * No lumbar or midline, no CVA, no paraspinal muscle spasm or tenderness. * Moves all 4 extremities well, with full ROM and good CSM. * BEACH x4, CN II-XII grossly intact. * No focal neurologic deficits. PSYCHIATRY * Normal mood and affect, cooperative, no SI or HI or hallucinations. Results Labs 11/19/24 05:17 11/19/24 05:17 Labs: Short CBC 11/18/24 Range/Units 05:25 WBC 10.0 (3.6-11.0) Thou/mm3 Hgb 9.8 L (12.0-16.0) g/dL Hct 32.6 L (36.0-46.0) % Plt Count 438 D (140-440) Thou/mm3 BMP 11/18/24 05:25 Sodium 137 Potassium 4.1 Chloride 103 Carbon Dioxide 23.8 BUN 6 L Creatinine 0.7 Glucose 135 H D Calcium 9.0 Cardiac Enzymes 11/18/24 Range/Units 14:53 Troponin I < 0.002 (0.0-0.045) ng/mL Liver Function 11/18/24 Range/Units 05:25 Total Bilirubin 0.2 L (0.3-1.2) mg/dL Direct Bilirubin < 0.1 (0.0-0.3) mg/dL AST 23 (0-34) U/L ALT 23 (10-49) U/L Alkaline Phosphatase 109 (46-116) U/L Albumin 4.6 (3.5-5.0) gm/dL Quality Measures Quality Measures VTE prophylaxis Medications Home Medications and Allergies Allergies Allergy/AdvReac Type Severity Reaction Status Date / Time ciprofloxacin (From Cipro) Allergy Severe Rash Verified 02/25/24 14:33 Iodinated Contrast Media Allergy Severe Hives Verified 02/25/24 14:33 ketorolac (From Toradol) Allergy Severe Rash Verified 02/25/24 14:33 promethazine (From Phenergan) Allergy Severe Rash Verified 02/25/24 14:33 Visit Medications Acetaminophen (Acetaminophen 500 Mg Tablet) 1,000 mg PO Q6H PRN PRN Reason: PAIN 1-3 OR FEVER > 99 Stop: 12/17/24 05:27 Atorvastatin Calcium (Atorvastatin Calcium 20 Mg Tablet) 40 mg PO HS [facility] Stop: 12/18/24 20:59 Buspirone HCl (Buspirone Hcl 5 Mg Tablet) 10 mg PO BID AYSHA Stop: 12/18/24 14:14 Last Admin: 11/18/24 14:46 Dose: 10 mg Cholestyramine Resin (Cholestyramine/Sucrose 1 Pkt Ea) 1 pkt PO QDAY AYSHA Stop: 12/17/24 10:59 Last Admin: 11/18/24 09:05 Dose: 1 pkt Famotidine (Famotidine Inj 10 Mg/Ml Vial 2 Ml) 20 mg IVP BID AYSHA Stop: 12/17/24 08:59 Last Admin: 11/18/24 09:05 Dose: 20 mg Gabapentin (Gabapentin 300 Mg Capsule) 600 mg PO TID AYSHA Stop: 12/18/24 21:59 Hydroxychloroquine Sulfate (Hydroxychloroquine 200 Mg Tablet) 200 mg PO BID AYSHA Stop: 11/24/24 08:59 Last Admin: 11/18/24 09:05 Dose: 200 mg Hyoscyamine (Hyoscyamine Sulf 0.125 Mg Tab.Subl) 0.25 mg PO TID [facility] Stop: 12/18/24 21:59 Metronidazole (Flagyl 500 Mg Iv) 500 mg in 100 mls @ 200 mls/hr IV Q8HR AYSHA Stop: 11/24/24 13:59 Last Admin: 11/18/24 13:15 Dose: 200 mls/hr Lactobacillus Rhamnosus (Lactobacillus Rhamnosus 1 Cap) 1 cap PO BID AYSHA Stop: 12/17/24 09:44 Last Admin: 11/18/24 09:05 Dose: 1 cap Methylprednisolone Sodium Succinate (Methylprednisolone Sod Succ 62.5 Mg/Ml 2ml Vial) 125 mg IVP BID [facility] Stop: 11/25/24 20:59 Morphine Sulfate (Morphine Sulf Inj 10 Mg/Ml Vial) 4 mg IVP Q4HR PRN PRN Reason: PAIN SCALE 7-10 (Severe Stop: 11/22/24 16:49 Last Admin: 11/18/24 09:45 Dose: 4 mg Ondansetron HCl (Ondansetron Inj 2 Mg/Ml Inj 2 Ml) 4 mg IV Q6H PRN; Protocol PRN Reason: NAUSEA OR VOMITING Stop: 12/17/24 05:27 Last Admin: 11/18/24 14:57 Dose: 4 mg Vitamin B Complex/Vit C/Folic Acid (Vit B12/Vit C/Fa (Nephrovite) Tablet) 1 tab PO QDAY [facility] Stop: 12/17/24 18:59 Last Admin: 11/18/24 09:05 Dose: 1 tab Zolpidem Tartrate (Zolpidem 5 Mg Tablet) 5 mg PO HS PRN PRN Reason: INSOMNIA Stop: 12/17/24 16:53 Last Admin: 11/17/24 22:09 Dose: 5 mg Discontinued Medications Acetaminophen (Acetaminophen 325 Mg Tablet) 650 mg PO X1 ONE Stop: 11/17/24 00:21 Last Admin: 11/17/24 00:51 Dose: 650 mg Acetaminophen (Acetaminophen 325 Mg Tablet) 650 mg PO Q6H PRN PRN Reason: PAIN OR FEVER > 101 Stop: 12/17/24 05:27 Acetaminophen (Acetaminophen 325 Mg Tablet) 650 mg PO Q6H PRN PRN Reason: PAIN 1-3 OR FEVER > 101 Stop: 12/17/24 05:27 Acetaminophen (Acetaminophen 325 Mg Tablet) 1,000 mg PO Q6H PRN PRN Reason: PAIN 1-3 OR FEVER > 99 Stop: 12/17/24 05:27 Alprazolam (Alprazolam 0.25 Mg Tablet) 0.5 mg PO X1 ONE Stop: 11/18/24 14:36 Last Admin: 11/18/24 14:48 Dose: Not Given Diphenhydramine HCl (Diphenhydramine Inj 50 Mg/Ml Vial) 25 mg IV X1 ONE Stop: 11/17/24 03:43 Last Admin: 11/17/24 04:08 Dose: 25 mg Enoxaparin Sodium (Enoxaparin Sod Inj 40 Mg/0.4 Ml Syringe) 40 mg SC QDAY [facility] Stop: 12/01/24 08:59 Gabapentin (Gabapentin 300 Mg Capsule) 600 mg PO BID [facility] Stop: 12/17/24 08:59 Last Admin: 11/18/24 09:05 Dose: 600 mg Hydromorphone HCl (Hydromorphone Inj 2 Mg/Ml Vial) 0.5 mg IVP X1 ONE Stop: 11/17/24 07:52 Last Admin: 11/17/24 08:03 Dose: 0.5 mg Hyoscyamine (Hyoscyamine Sulf 0.125 Mg Tab.Subl) 0.25 mg PO Q4HR AYSHA Stop: 12/17/24 18:59 Last Admin: 11/18/24 10:29 Dose: 0.25 mg Lactated Ringer's (Lactated Ringers) 1,000 mls @ 999 mls/hr IV .Q1H1M ONE Stop: 11/17/24 04:04 Last Infusion: 11/17/24 05:00 Dose: Infused Lactated Ringer's (Lactated Ringers) 1,000 mls @ 100 mls/hr IV .Q10H AYSHA Stop: 12/17/24 03:04 Last Admin: 11/17/24 17:09 Dose: 100 mls/hr Lactated Ringer's (Lactated Ringers) 1,000 mls @ 999 mls/hr IV .Q1H1M ONE Stop: 11/17/24 04:06 Last Infusion: 11/17/24 04:56 Dose: Infused Ceftriaxone Sodium/Dextrose (Rocephin/D5w 1gm Iv Premix) 1 gm in 50 mls @ 100 mls/hr IV X1 ONE Stop: 11/17/24 03:35 Last Infusion: 11/17/24 04:17 Dose: Infused Metronidazole (Flagyl 500 Mg Iv) 500 mg in 100 mls @ 100 mls/hr IV X1 ONE Stop: 11/17/24 04:37 Last Infusion: 11/17/24 06:45 Dose: Infused Magnesium Sulfate/Dextrose (Magnesium Sulfate Ivpb) 1 gm in 100 mls @ 100 mls/hr IV X1 ONE Stop: 11/17/24 04:56 Last Infusion: 11/17/24 06:06 Dose: Infused Magnesium Sulfate (Magnesium Sulfate Ivpb) 2 gm in 50 mls @ 25 mls/hr IV X1 ONE Stop: 11/17/24 07:59 Last Admin: 11/17/24 06:57 Dose: 25 mls/hr Ceftriaxone Sodium/Dextrose (Rocephin/D5w 1gm Iv Premix) 1 gm in 50 mls @ 100 mls/hr IV QDAY [facility] Stop: 11/25/24 08:59 Ciprofloxacin/Dextrose (Cipro Ivpb) 400 mg in 200 mls @ 200 mls/hr IV Q12HR [facility] Stop: 11/24/24 08:43 Ceftriaxone Sodium/Dextrose (Rocephin/D5w 1gm Iv Premix) 1 gm in 50 mls @ 100 mls/hr IV QDAY [facility] Stop: 11/25/24 08:59 Sodium Chloride (Ns) 1,000 mls @ 999 mls/hr IV .Q1H1M ONE Stop: 11/18/24 16:16 Last Admin: 11/18/24 15:45 Dose: 999 mls/hr Labetalol HCl (Labetalol Inj 5 Mg/Ml Vial 20 Ml) 10 mg IVP X1 ONE Stop: 11/18/24 14:18 Last Admin: 11/18/24 14:43 Dose: 10 mg Lidocaine (Lidocaine 5% 1 Patch) 1 patch TOP X1 ONE Stop: 11/17/24 16:28 Last Admin: 11/17/24 17:11 Dose: 1 patch Lorazepam (Lorazepam 2 Mg/Ml Vial) 2 mg IVP X1 ONE Stop: 11/18/24 14:52 Last Admin: 11/18/24 14:57 Dose: 2 mg Methylprednisolone Sodium Succinate (Methylprednisolone Sod Succ 62.5 Mg/Ml 2ml Vial) 125 mg IVP Q6HR [facility] Stop: 11/24/24 17:59 Last Admin: 11/18/24 11:57 Dose: 125 mg Morphine Sulfate (Morphine Sulf Inj 10 Mg/Ml Vial) 2 mg IVP X1 ONE Stop: 11/17/24 03:04 Last Admin: 11/17/24 03:40 Dose: 2 mg Morphine Sulfate (Morphine Sulf Inj 10 Mg/Ml Vial) 4 mg IVP Q4HR PRN PRN Reason: PAIN SCALE 7-10 (Severe Last Admin: 11/17/24 17:10 Dose: 4 mg Morphine Sulfate (Morphine Sulf Inj 10 Mg/Ml Vial) 2 mg IVP Q4HR PRN PRN Reason: PAIN SCALE 7-10 (Severe Stop: 11/22/24 16:49 Morphine Sulfate (Morphine Sulf Inj 10 Mg/Ml Vial) 4 mg IVP X1 ONE Stop: 11/18/24 14:36 Last Admin: 11/18/24 14:36 Dose: 4 mg Ondansetron HCl (Ondansetron Inj 2 Mg/Ml Inj 2 Ml) 4 mg IV X1 ONE; Protocol Stop: 11/17/24 03:08 Last Admin: 11/17/24 03:39 Dose: 4 mg Pantoprazole Sodium (Pantoprazole Inj 40 Mg Vial) 40 mg IVP X1 ONE Stop: 11/17/24 03:08 Last Admin: 11/17/24 03:35 Dose: 40 mg Sennosides (Senna Tablet) 2 tab PO BID PRN; Protocol PRN Reason: CONSTIPATION Stop: 12/17/24 05:27 Tramadol HCl (Tramadol Hcl 50 Mg Tablet) 50 mg PO Q6HR PRN PRN Reason: PAIN Stop: 11/22/24 09:36 Tramadol HCl (Tramadol Hcl 50 Mg Tablet) 50 mg PO X1 ONE Stop: 11/17/24 09:38 Last Admin: 11/17/24 10:29 Dose: 50 mg Tramadol HCl (Tramadol Hcl 50 Mg Tablet) 50 mg PO Q6HR PRN PRN Reason: PAIN SCALE 4-6 (Moderate Stop: 11/22/24 09:36 Tramadol HCl (Tramadol Hcl 50 Mg Tablet) 100 mg PO Q8HR PRN PRN Reason: PAIN SCALE 4-6 (Moderate Stop: 11/22/24 09:39 Last Admin: 11/18/24 00:25 Dose: 100 mg Assessment & Plan Plan 39-year-old female with PMHx of SLE, fibromyalgia, presenting to the ED with subjective fever, chills, nausea and vomiting and diarrhea. She was admitted for acute enteritis versus lupus exacerbation. Primary team had consulted in regards to RR this morning with concern for pericarditis. Endocarditis ruled out Acute coronary syndrome rule out Costocondritis vs fibromyalgia Initial evaluation ruled out acute coronary syndrome and pericarditis. Troponin levels were negative, and the EKG showed only sinus tachycardia without ischemic changes such as T-wave abnormalities or ST-segment depression. A stat echocardiogram revealed a normal ejection fraction (EF 55-60%), no pericardial effusion, and normal left/right ventricular size and function, effectively excluding both myocardial infarction and pericarditis. The mild mitral and tricuspid regurgitation observed is likely clinically insignificant. The lactic acid elevated to 4.4 initially but normalized after fluids, further suggesting that her symptoms were likely not due to ischemia or shock. Given the negative cardiac workup, the most likely cause of her chest pain is musculoskeletal pain linked to her fibromyalgia and possibly exacerbated by the stress of her personal circumstances. The elevated ESR suggests ongoing systemic inflammation, potentially due to a lupus flare, but there are no signs of active infection or acute disease processes. 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 With normal cardiac findings, recommended a focus on pain management, muscle relaxants (Flexeril), and anxiety management, the patient?s symptoms are expected to improve, with continued monitoring of troponin to rule out any subtle cardiac changes. ? Started FLEXERIL ? Continue pain management, anxiety control ? Follow AM troponin ? Encourage fluids ? Maintaing K>4, Mag >2 Iron deficiency anemia CBC shows leukocytosis consistent with the ongoing systemic inflammation and anemia, which could be due to iron deficiency given findings of low iron storage, or a chronic disease process. ? Consider Iron supplements. Lactic acidosis (improving) ? Continue fluids Lupus enteritis? Lupus flare Acute diarrhea-resolving Blurry vision ? Managed by primary team Thank you for the opportunity to participate in the patient's care. Case was discussed with attending, Dr. Faustin. Ami Friend, DO PGYI Attending Provider Attestation/Addendum I have personally seen and examined the patient separately on the above date of service and discussed the plan of care with the resident. I reviewed the resident Dr. Ami Friend consultation note and agree with the resident findings and plan in the note above and have also edited the documentation to reflect my findings and plan. Driss Faustin M.D. Interventional Cardiology
[2024-11-18] MEDS: ATORVASTATIN CALCIUM 20 MG TABLET 40 MG PO (20:08)
[2024-11-18] MEDS: ZOLPIDEM 5 MG TABLET PO (22:15)
[2024-11-19] VITALS: BP 143/99; PULSE 108; RESP 14; TEMP 37.1; O2SAT 99
[2024-11-19] MEDS: MORPHINE SULF INJ 10 MG/ML VIAL 4 MG IVP ×3 (00:11→08:47)
[2024-11-19] MEDS: ALPRazoLAM 0.25 MG TABLET 0.5 MG PO (03:12)
[2024-11-19 04:00] VITALS: BP 125/84; PULSE 100; PULSE 104; RESP 15; TEMP 36.4; O2SAT 94
[2024-11-19] MEDS: metroNIDAZOLE/NS 500 MG IVPB 500 MG/100 ML BAG 200 MG IV (05:16)
[2024-11-19] MEDS: GABAPENTIN 300 MG CAPSULE 600 MG PO ×2 (05:17→13:43)
[2024-11-19] MEDS: HYOSCYAMINE SULF 0.125 MG TAB.SUBL 0.25 MG PO ×2 (05:17→13:45)
[2024-11-19 06:29] LABS: Basophils % (Auto) 0 % (0-2.5); Eosinophils % (Auto) 0 % (0-10); Hematocrit 28.9 % (36.0-46.0); Immature Granulocytes % (Auto) 1 % (0-0); Lymphocytes # (Auto) 1.4 Thou/mm3 (1.0-4.8); Lymphocytes % (Auto) 8 % (10-50); Mean Corpuscular HGB Conc 30.4 g/dl (31.0-37.0); Mean Corpuscular Hemoglobin 25.2 pg (25.0-35.0); Mean Corpuscular Volume 83 fL (80-100); Monocytes # (Auto) 0.9 Thou/mm3 (0.0-0.8); Monocytes % (Auto) 6 % (0-12); Neutrophils # (Auto) 14.4 Thou/mm3 (1.8-7.7); Neutrophils % (Auto) 85 % (37-80); Nucleated Red Blood Cell % 0 /100 WBC (0); Platelet Count 390 Thou/mm3 (140-440); RDW Standard Deviation 51.9 fL (36.4-46.3); Red Blood Count 3.49 Miln/mm3 (4.00-5.20); White Blood Count 16.9 Thou/mm3 (3.6-11.0)
[2024-11-19 06:32] LABS: Hemoglobin 8.8 g/dL (12.0-16.0)
[2024-11-19 06:46] LABS: Anion Gap 9 (7-16); BUN/Creatinine Ratio 10 Ratio (12-20); Blood Urea Nitrogen 8 mg/dL (9-23); Calcium 8.8 mg/dL (8.3-10.6); Carbon Dioxide 26.5 mMol/L (20.0-31.0); Chloride 105 mMol/L (98-107); Creatinine (Component) 0.8 mg/dL (0.6-1.3); Estimated Creatinine Clearance 108.5 mL/min (>60); Glucose 130 mg/dL (74-106); Magnesium 2.1 mg/dL (1.6-2.6); Osmolality,Calculated 279 (275-295); Phosphorous 3.6 mg/dL (2.4-5.1); Potassium 4.1 mMol/L (3.4-5.1); Sodium 140 mMol/L (136-145); Troponin I < 0.002 ng/mL (0.0-0.045); eGFR > 60 See Note
[2024-11-19 06:48] VITALS: PULSE 100; RESP 18; RESP 92
[2024-11-19 07:13] VITALS: BP 143/92; PULSE 91; RESP 16; TEMP 36.7
[2024-11-19 07:51] VITALS: PULSE 96
[2024-11-19] MEDS: CYCLObenzaPRINE 5 MG TABLET 7.5 MG PO (08:23)
[2024-11-19] MEDS: CHOLESTYRAMINE/SUCROSE 1 PKT EA PO (08:25)
[2024-11-19] MEDS: FAMOTIDINE INJ 10 MG/ML VIAL 2 ML 20 MG IVP (08:25)
[2024-11-19] MEDS: MethylPREDNISolone SOD SUCC 62.5 MG/ML 2ML VIAL 125 MG IVP (08:25)
[2024-11-19] MEDS: LACTOBACILLUS RHAMNOSUS 1 CAP PO (08:26)
[2024-11-19] MEDS: HYDROXYCHLOROQUINE 200 MG TABLET PO (08:26)
[2024-11-19] MEDS: BusPIRone HCL 5 MG TABLET 10 MG PO (08:26)
[2024-11-19] MEDS: VIT B12/Vit C/FA (Nephrovite) TABLET 1 TAB PO (08:26)
[2024-11-19] MEDS: POLYETHYLENE GLYCOL 17 GM PACKET PO (10:02)
[2024-11-19] MEDS: DULoxetine HCL 30 MG CAPSULE PO (10:02)
[2024-11-19 11:30] VITALS: BP 148/97; PULSE 100; RESP 18; TEMP 37.2
--- NOTE | 2024-11-19 11:39 | PD.RESDS ---
Planned Discharge Date 11/19/24 DS: Providers Provider Date of admission: 11/17/24 05:21 Primary care physician: Av Gracia PA-C Admitting Provider: Jerry Faith MD Attending Provider on Admission: Anna May MD Consults: 11/18/24 11:38 Consult to Neurology / Tele-Neurology Routine Comment: blurry vision Consulting Provider: Tony Espinal 11/18/24 14:40 Consult to Cardiology Routine Comment: Consulting Provider: Driss Faustin Instructions: r/o pericarditis Attending Provider on DC: Anna May MD Discharging Provider: Dav Mendes MD Anticipated date of discharge: 11/19/24 DS: Diagnosis Problem List Completed Was Problem List Reviewed/Reconciled?: Yes Hospital Course Hospital Course Hospital course: 39-year-old female with past medical history of systemic lupus erythematosus on Plaquenil, fibromyalgia, history of cholecystectomy presented to the ED with fever, chills, nausea, vomiting, and diarrhea. And was admitted for possible lupus flare. During hospital stay patient was managed with IV antibiotics, high-dose IV steroids after which presenting symptoms resolved and patient will be discharged on steroid tapering, BuSpar, duloxetine. During hospitalization patient did have rapid response for typical chest pain symptoms. For which cardiology was consulted and was evaluated with serial EKGs, and echocardiogram all found to be within normal limits. Patient also has history of daily use of medications for headache. During hospitalization here patient developed headaches with blurry vision neurology was consulted and recommended the patient to keep a headache diary and to decrease use of NSAID medications. At this time patient is medically stable for discharge. Follow up with primary care physician within 1 week of discharge. You have been prescribed duloxetine for neuropathic pain and buspar for anxiety please take these meds as prescribed. You have been prescribed a methylprednisolone taper. Please take as instructed. Should any symptoms recur or worsen patient is instructed to return to the ED Problem List: #Lupus enteritis? #Lupus flare #Acute diarrhea-resolved #Blurry vision #Costocondritis #Headache #Medication overuse #Tension headache #Fibromyalgia Case discussed with my senior Dr. Rosado and my attending Dr. Lalo Mendes MD PGY-1 Status at Discharge Functional status at discharge: independent ambulation Overall status at discharge: patient is back to baseline Time Spent with Patient Time attestation: Total time spent providing and/or coordinating discharge services: Time spent: Greater than 30 minutes Exam Vital Signs Temp Pulse Resp BP Pulse Ox O2 Del Method 99.0 F 100 18 148/97 H 94 L Room Air 11/19/24 11:30 11/19/24 11:30 11/19/24 11:30 11/19/24 11:30 11/19/24 04:00 11/19/24 04:00 Narrative Exam Physical Exam GENERAL: NAD, AAOx3 HEENT: Moist mucosa. Eyes open, symmetrical, & clear CARDIO: Heart RRR, no obvious murmurs PULM: No noted coughing/dyspnea CTA B/L, no R/W/R GI: Abdomen soft, nondistended, no pain on palpation. BSx4 SKIN/MSK/EXT: No wounds/rashes/edema/amputations, no pain on palpation. Pedal pulses present B/L NEURO: AAOx3, no focal neuro deficits, able to move all 4 extremities Discharge Plan Plan Patient Disposition: HOME (Self Care) Care Plan Goals: Follow up with primary care physician within 1 week of discharge You have been prescribed duloxetine for neuropathic pain and buspar for anxiety please take these meds as prescribed. You have been prescribed a methylprednisolone taper. Please take as instructed Should any symptoms recur or worsen patient is instructed to return to the ED Prescriptions/Referrals Prescriptions/Med Rec: New buspirone 10 mg tablet 10 mg PO BID 30 Days Qty: 60 0RF methylprednisolone [Medrol (Smith)] 4 mg tablets,dose pack See Rx Instructions .ROUTE .COMPLEX Qty: 21 0RF Rx Instructions: Follow package directions duloxetine 30 mg capsule,delayed release(DR/EC) 30 mg PO BID 30 Days Qty: 60 0RF Continued cyclobenzaprine 7.5 mg tablet 7.5 mg PO TID Qty: 14 0RF dicyclomine 20 mg tablet 20 mg PO TID PRN (Reason: abdominal pain) Qty: 21 0RF famotidine [Pepcid] 40 mg tablet 40 mg PO BID Qty: 14 0RF ondansetron 4 mg tablet,disintegrating 4 mg PO Q8H PRN (Reason: nausea and vomiting) Qty: 10 0RF Discontinued [id number] [Fioricet] 50-300-40 mg capsule 1 cap PO TID PRN (Reason: migraine headache) Qty: 20 0RF ondansetron HCl 4 mg tablet 4 mg PO TID PRN (Reason: nausea and vomiting) Qty: 20 0RF ibuprofen 800 mg tablet 800 mg PO TID PRN (Reason: pain) Qty: 30 0RF hydrocodone-acetaminophen 5-325 mg tablet 1 tab PO BID MDD 4 PRN (Reason: pain) Qty: 14 0RF lorazepam [Ativan] 1 mg tablet 1 mg PO BID PRN (Reason: anxiety) Qty: 14 0RF prednisone 20 mg tablet 20 mg PO QDAY Qty: 7 0RF Taper: Prednisone Taper 20 mg DAILY for 2 Days and 0 Hour 10 mg DAILY for 2 Days and 0 Hour 5 mg DAILY for 7 Days and 0 Hour acetaminophen-codeine 300-30 mg tablet 1 tab PO Q6H PRN (Reason: pain) Qty: 20 0RF acetaminophen-codeine 300-15 mg tablet 1 tab PO BID MDD 2 PRN (Reason: pain) Qty: 7 0RF metoclopramide HCl [Reglan] 10 mg tablet 10 mg PO Q6H PRN (Reason: nausea and vomiting) Qty: 20 0RF Referrals: Av Gracia PA-C [Primary Care Provider] - Patient/Caregiver Discharge Instructions Education Materials: Urinary Tract Infections in Women, Sepsis, Kidney Infec Dc, Understanding Sepsis Print Language: Indonesian Stand Alone Forms: Ruth Award Info., Patient Portal Info Letter Discharge Order Discharge Orders: Discharge (Routine); Ordered 11/19/24 Ordered By: Dav Mendes Quality Discharge Quality Measures VTE prophylaxis Attestestation Attestation 39-year-old female with SLE and history of cholecystectomy presenting with nausea and vomiting with differential diagnosis including postcholecystectomy syndrome versus lupus enteritis. Will continue steroids and monitor closely. Low suspicion for infectious etiology at this point.in addition, patient also complained of headache and concern was for lupus cerebritis however denies any focal neurologic symptoms and currently back to baseline. As of now, patient is hemodynamically stable, denies any nausea, vomiting or diarrhea and plan to discharge the patient home. Patient has to follow-up with outpatient rheumatology closely. I Reviewed above note and agree with findings and plans. I have also personally examined the patient with medicine team and went over assessment and plan with medical team including marketing operations intern and resident physician.
[2024-11-19] MEDS: ACETAMINOPHEN 500 MG TABLET 1000 MG PO (11:50)
--- NOTE | 2024-11-19 14:28 | ESPR_ITS ---
Documentation for date of: 11/19/24 Subjective Subjective Interval history: Patient was seen and examined by the bedside. No acute overnight events. Patient reported feeling dizzy when showering, hit her head. Reports headache 04/23. Cold compress was ordered. Exam Vital Signs Temp Pulse Resp BP Pulse Ox O2 Del Method 99.0 F 100 18 148/97 H 94 L Room Air 11/19/24 11:30 11/19/24 11:30 11/19/24 11:30 11/19/24 11:30 11/19/24 04:00 11/19/24 04:00 Narrative Exam Gen: Well-developed and well-nourished. Appears tired. HEENT: NCAT, PERRLA, EOMI, MMM, anicteric conjunctivae. CVS: normal S1 and S2. RRR. No M/R/G. Resp: CTA B/L. No rhonchi, rales, crackles or wheezing. MSK: Decreased ROM in BUE & BLE due to pain. left knee edema. Neuro: CN II-XII grossly intact. Strength 5/5 in BUE & BLE. Alert and oriented x3. Psych:appropriate mood and affect. Objective Labs 11/19/24 05:17 11/19/24 05:17 Labs: Laboratory Results - last 24 hr 11/18/24 11/18/24 11/19/24 14:53 18:36 05:17 WBC 16.9 H D RBC 3.49 L Hgb 8.8 L Hct 28.9 L MCV 83 MCH 25.2 MCHC 30.4 L RDW Std Deviation 51.9 H Plt Count 390 D Neut % (Auto) 85 H Lymph % (Auto) 8 L [place] % (Auto) 6 Eos % (Auto) 0 Baso % (Auto) 0 Neut # (Auto) 14.4 H Lymph # (Auto) 1.4 [place] # (Auto) 0.9 H Eos # (Auto) 0.0 Baso # (Auto) 0.0 Immature Gran # (Auto) 0.10 H Absolute Nucleated RBC 0.00 Immature Gran % 1 H Nucleated RBC % 0 Sodium 140 Potassium 4.1 Chloride 105 Carbon Dioxide 26.5 Anion Gap 9 BUN 8 L Creatinine 0.8 Estim Creat Clear Calc 108.5 eGFR > 60 BUN/Creatinine Ratio 10 L Glucose 130 H Calculated Osmolality 279 Lactic Acid 4.4 H* 2.1 H Calcium 8.8 Phosphorus 3.6 Magnesium 2.1 Troponin I < 0.002 < 0.002 Procalcitonin 0.05 Quality Measures Quality Measures VTE prophylaxis Assessment & Plan Plan #Headache #Medication overuse #Tension headache #Blurry vision #Fibromyalgia Ddx: tension headache vs migraine with medication overuse contributing. Patient has a history of near sidedness, reports that blurry vision appears with headache. Plan: - decrease use of pain medication - patient was recommended to start headache diary - education provided regarding medication overuse - cymbalta 30 mg qday - gabapentin 600 mg TID - stop tramadol (risk of serotonine syndrome in combination with venlafaxine) - try to refrain from opioids due to them increasing nausea #Lupus enteritis? #Lupus flare #Acute diarrhea-resolving - management per primary team Plan of care discussed with attending Dr. Espinal. Breonna Manzo MD, PGY 1. Attending Provider Attestation/Addendum I independently seen and reviewed the patient findings, assessment and plan of care. Patient is advised to restrict the use of opiates and NSAIDs to avoid medication overuse/rebound headache. Continue with the gabapentin and Cymbalta for now. Follow-up in 2 weeks with me.
--- NOTE | 2024-11-19 15:23 | ESPR_ITS ---
Documentation for date of: 11/19/24 Subjective Subjective Interval history: No acute overnight events. Pain seems controlled after meds adjustment. Afebrile, BP 148/97, HR 100, satting well on room air. Labs reviewed, repeat trop negative again, chem panel relatively unchanged. WBC 16.9, Hgb 8.8, PLT 390. Low suspicion for cardiac involvement, pericarditis without, chest pain, most likely musculoskeletal in nature and as described in previous notes. Cardiology will sign off at this time. Please consult as needed. Exam Vital Signs Temp Pulse Resp BP Pulse Ox O2 Del Method 99.0 F 100 18 148/97 H 94 L Room Air 11/19/24 11:30 11/19/24 11:30 11/19/24 11:30 11/19/24 11:30 11/19/24 04:00 11/19/24 04:00 Narrative Exam GENERAL * Obese, otherwise well-appearing adult female, in mild distress, on room air, satting well * Reports improvement in muscle pain. HEENT * NCAT.?[place]. Oral mucosa is moist. Patent Nares NECK * Supple, nontender, no thyromegaly, no meningismus, no JVD, no step offs CHEST * RRR, no m/g/r * CTAB, no w/r/r. Symmetrical chest rise. No intercostal subcostal retraction * Atraumatic, nontender, no crepitus, symmetrical expansion. ABDOMEN * Soft, flat, nontender. No guarding/rebound tenderness/masses. * Bowel sounds presents EXTREMITIES * No edema/cyanosis.? SKIN * Warm and dry, no jaundice/rashes. NEUROMUSCULAR * No lumbar or midline, no CVA, no paraspinal muscle spasm or tenderness. * Moves all 4 extremities well, with full ROM and good CSM. * [place] x4, CN II-XII grossly intact. * No focal neurologic deficits. PSYCHIATRY * Normal mood and affect, cooperative, no SI or HI or hallucinations. Objective Labs 11/19/24 05:17 11/19/24 05:17 Labs: Laboratory Results - last 24 hr 11/18/24 11/18/24 11/19/24 14:53 18:36 05:17 WBC 16.9 H D RBC 3.49 L Hgb 8.8 L Hct 28.9 L MCV 83 MCH 25.2 MCHC 30.4 L RDW Std Deviation 51.9 H Plt Count 390 D Neut % (Auto) 85 H Lymph % (Auto) 8 L [place] % (Auto) 6 Eos % (Auto) 0 Baso % (Auto) 0 Neut # (Auto) 14.4 H Lymph # (Auto) 1.4 [place] # (Auto) 0.9 H Eos # (Auto) 0.0 Baso # (Auto) 0.0 Immature Gran # (Auto) 0.10 H Absolute Nucleated RBC 0.00 Immature Gran % 1 H Nucleated RBC % 0 Sodium 140 Potassium 4.1 Chloride 105 Carbon Dioxide 26.5 Anion Gap 9 BUN 8 L Creatinine 0.8 Estim Creat Clear Calc 108.5 eGFR > 60 BUN/Creatinine Ratio 10 L Glucose 130 H Calculated Osmolality 279 Lactic Acid 2.1 H Calcium 8.8 Phosphorus 3.6 Magnesium 2.1 Troponin I < 0.002 < 0.002 Procalcitonin 0.05 Quality Measures Quality Measures VTE prophylaxis Assessment & Plan Plan 39-year-old female with PMHx of SLE, fibromyalgia, presenting to the ED with subjective fever, chills, nausea and vomiting and diarrhea. She was admitted for acute enteritis versus lupus exacerbation. Primary team had consulted in regards to RR this morning with concern for pericarditis. Endocarditis ruled out Acute coronary syndrome rule out Costocondritis vs fibromyalgia Initial evaluation ruled out acute coronary syndrome and pericarditis. Troponin levels were negative, and the EKG showed only sinus tachycardia without ischemic changes such as T-wave abnormalities or ST-segment depression. A stat echocardiogram revealed a normal ejection fraction (EF 55-60%), no pericardial effusion, and normal left/right ventricular size and function, effectively excluding both myocardial infarction and pericarditis. The mild mitral and tricuspid regurgitation observed is likely clinically insignificant. The lactic acid elevated to 4.4 initially but normalized after fluids, further suggesting that her symptoms were likely not due to ischemia or shock. Given the negative cardiac workup, the most likely cause of her chest pain is musculoskeletal pain linked to her fibromyalgia and possibly exacerbated by the stress of her personal circumstances. The elevated ESR suggests ongoing systemic inflammation, potentially due to a lupus flare, but there are no signs of active infection or acute disease processes. 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 With normal cardiac findings, recommended a focus on pain management, muscle relaxants (Flexeril), and anxiety management, the patient?s symptoms are expected to improve. Repeat troponin again negative this morning. Low suspicion for cardiac involvement. ? Continue pain management, anxiety control ? Encourage fluids ? Maintaing K>4, Mag >2 No acute overnight events. Pain seems controlled after meds adjustment. Afebrile, BP 148/97, HR 100, satting well on room air. Labs reviewed, repeat trop negative again, chem panel relatively unchanged. WBC 16.9, Hgb 8.8, PLT 390. Low suspicion for cardiac involvement, pericarditis without, chest pain, most likely musculoskeletal in nature and as described in previous notes. Cardiology will sign off at this time. Please consult as needed. Iron deficiency anemia CBC shows leukocytosis consistent with the ongoing systemic inflammation and anemia, which could be due to iron deficiency given findings of low iron storage, or a chronic disease process. ? Consider Iron supplements. Lactic acidosis (improving) ? Continue fluids Lupus enteritis? Lupus flare Acute diarrhea-resolving Blurry vision ? Managed by primary team Thank you for the opportunity to participate in the patient's care. Case was discussed with attending, Dr. Faustin. Ami Friend, DO PGYI Attending Provider Attestation/Addendum I have personally seen and examined the patient separately on the above date of service and discussed the plan of care with the resident. I reviewed the resident Dr. Ami Friend consultation progress note and agree with the resident findings and plan in the note above and have also edited the documentation to reflect my findings and plan. Driss Faustin M.D. Interventional Cardiology
[2024-11-23 07:12] LABS: Complement Component C3* 148 mg/dL (83-193); Complement Component C4c* 23 mg/dL (15-57); DNA (ds) Antibody* 1 IU/mL
== END 2024-11-19 14:10 | disposition home or self-care (01) | DRG 346 ==
LOC: SERX 11-17 05:12 → SERHOLD 11-17 06:02 → S3NX 11-17 11:28
PROVIDERS: Physician Assistant; Student in an Organized Health Care Education/Training Program; Admitting Provider Internal Medicine; Emergency Provider Emergency Medicine; PCP Physician Assistant; Visit Provider Internal Medicine
DX: M32.9 Systemic lupus erythematosus, unspecified (principal); M79.7 Fibromyalgia; R19.7 Diarrhea, unspecified; R11.10 Vomiting, unspecified; H53.8 Other visual disturbances; G44.209 Tension-type headache, unspecified, not intractable; E87.20 Acidosis, unspecified; Z90.49 Acquired absence of other specified parts of digestive tract; F41.9 Anxiety disorder, unspecified; M94.0 Chondrocostal junction syndrome [Tietze]
CPT/HCPCS: 36415; 71045; 74177; 76700; 76770; 80048; 80053; 80061; 80076; 80307; 81001; 81025; 82150; 82570; 83540; 83550; 83605; 83690; 83735; 84100; 84145; 84156; 84439; 84443; 84484; 85025; 85610; 85652; 85730; 86140; 86160; 86225; 87015; 87040; 87045; 87046; 87081; 87086; 87205; 87329; 87493; 87811; 87899; 93005; 93306; 96365; 96367; 96375; 99285; A4649; J0696; J1171; J1200; J2060; J2270; J2405; J2470; J2919; J3475; J3490; J7030; J7120; Q9967; A9270; J1836; J1920

== ENCOUNTER 2025-01-26 13:30 | Outpatient (RCR) | payer MEDICAID, SELFPAY ==
--- NOTE | 2025-01-12 11:26 | PT.ODAYNRPT ---
PT Outpatient Daily Note OP Daily Note Outpatient Physical Therapy Treatment Date: 01/12/25 Visit Reasons: back pain Subjective: Pt reports back has been doing better but still notices that she can not be on her feet for more than 45 minutes. Objective: Please see flow sheet for ther ex list. Assessment: Added core strengthening pt tolerated with muscle fatigue but no pain report. Plan: Continue with POC. Length of Time (minutes) of Treatment: 30 Minutes Procedure Charges Therapeutic Exercise 30 minutes: Yes
--- NOTE | 2025-01-26 14:23 | PT.ODAYNRPT ---
PT Outpatient Daily Note OP Daily Note Outpatient Physical Therapy Treatment Date: 01/26/25 Visit Reasons: back pain Subjective: Pt reports back is doing better. Objective: Please see flow sheet for ther ex list. Assessment: Pt c/o dizziness during standing punch out exercise, pt instructed to sit down in chair rest and given cup of water. Dizziness resolved after a few minutes, continued with sitting ther ex. Plan: Continue with POC. Length of Time (minutes) of Treatment: 30 Minutes Procedure Charges Therapeutic Exercise 30 minutes: Yes
--- NOTE | 2025-03-02 12:52 | PT.ODS1RPT ---
PT OP Progress/Discharge Note Date of Service: 03/02/25 Progress Note/DC Note Progress Note/Discharge Note: DC Note Patient Information Visit Reasons: back pain Service Discharge Date: 03/02/25 Status Assessment: Pt has been seen for 14 visits (eval + 13 visits). Pt last treated on 01/26/25 and has not returned to therapy. At this time Pt will be d/c from care due to plan of care 02/04/25. Pt did not meet set goals in therapy; thank you for your referrals
== END 2025-02-11 23:59 | disposition home or self-care (01) ==
LOC: CPTX 13:30
PROVIDERS: PCP Nurse Practitioner Family; Referring Provider Nurse Practitioner Family; Visit Provider Nurse Practitioner Family
DX: M51.17 Intervertebral disc disorders with radiculopathy, lumbosacral region (principal); R26.2 Difficulty in walking, not elsewhere classified; G89.29 Other chronic pain
CPT/HCPCS: 97110

== ENCOUNTER → 2025-05-07 | Outpatient (CLI) | payer MEDICAID, SELFPAY ==
--- NOTE | 2025-05-07 10:00 | XR_ITS ---
Examination: MRI lumbar spine without contrast Date and time of exam: May 07, 2025, 1258 hours INDICATIONS: Lower back pain radiating to both hips 6 months Technique: Multiple MRI axial and sagittal sections lumbar spine. Sagittal T2-weighted images, TR 3500, TE 118 T1 weighted transverse sections, TR 688 T8.5, T2-weighted sagittal sections T1 weighted sagittal sections TR 621, TE 30 T2 axial sections, TR 4, 190, TE 84. Findings: Adequate alignment lumbar vertebral bodies on the lateral view No lumbar fracture Moderate disc narrowing posteriorly L5-S1 No spondylolisthesis Disc desiccation L4-L5 L5-S1 no disc protrusion L4-L5 2 mm central lumbar disc bulge L3-L4 no disc protrusion L2-3 no disc protrusion L1-2 no disc protrusion IMPRESSION: Satisfactory line and lumbar vertebral bodies No lumbar fracture No significant acquired spinal stenosis
== END | disposition home or self-care (01) ==
LOC: SMRI 09:48
PROVIDERS: PCP Physician Assistant; Referring Provider Physician Assistant; Visit Provider Physician Assistant
DX: M54.50 Low back pain, unspecified (principal)
CPT/HCPCS: 72148

== ENCOUNTER 2025-05-31 14:55 | Emergency (ER) | payer MEDICAID, SELFPAY ==
[2025-05-31 14:56] VITALS: BMI 39.8
[2025-05-31 15:01] VITALS: BP 147/88; PULSE 130; RESP 20; TEMP 36.8; O2SAT 97
--- NOTE | 2025-05-31 15:07 | XR_ITS ---
EXAMINATION: PA chest single view TECHNIQUE: Upright PA chest single view Date and time: May, 1515 hours, comparison November 17, 2024 INDICATIONS: Tachycardia shortness of breath dizziness headache anemia today FINDINGS: Normal heart size Lungs are clear. Osseous rectors are intact IMPRESSION: No active disease
--- NOTE | 2025-05-31 15:10 | PD.EDARRY ---
ED Arrhythmia Palp. RME/HPI General Chief Complaint: Arrhythmia/Palpitations Stated Complaint: PALPATIONS Time Seen by Provider: 05/31/25 15:15 Arrival date/time: 05/31/25 14:55 RME / HPI RME / HPI narrative: See [facility] for Dr. Stark's HPI documentation. Related Data Previous Rx's ?Medication ?Instructions ?Recorded cyclobenzaprine 7.5 mg tablet 7.5 mg PO TID #14 tabs 08/20/22 dicyclomine 20 mg tablet 20 mg PO TID PRN abdominal pain 08/15/23 #21 tabs famotidine 40 mg tablet (Pepcid) 40 mg PO BID #14 tabs 08/15/23 ondansetron 4 mg disintegrating 4 mg PO Q8H PRN nausea and 10/28/23 tablet vomiting #10 tabs methylprednisolone 4 mg tablets in See Rx Instructions .Route 11/19/24 a dose pack (Medrol (Smith)) .COMPLEX #21 tabs alprazolam 0.5 mg tablet (Xanax) 0.5 mg PO BID PRN anxiety #10 tabs 05/31/25 Allergies Allergy/AdvReac Type Severity Reaction Status Date / Time ciprofloxacin (From Cipro) Allergy Severe Rash Verified 05/31/25 14:58 Iodinated Contrast Media Allergy Severe Hives Verified 05/31/25 14:58 ketorolac (From Toradol) Allergy Severe Rash Verified 05/31/25 14:58 promethazine (From Phenergan) Allergy Severe Rash Verified 05/31/25 14:58 Review of Systems Review of Systems Systems Reviewed: All systems reviewed, normal except as documented Past Medical History Past Medical History NEUROLOGIC: Positive Migraine GASTROINTESTINAL: Positive Gall Bladder Disease REPRODUCTIVE: Positive Previous Pregnancies MUSCULOSKELETAL: Positive Musculoskeletal Disorders and Fibromyalgia HEMATOLOGIC: Positive Anemia OTHER HISTORY: Positive Autoimmune Disease Surgical History SURGICAL: Positive Tubal Ligation Social History SMOKING STATUS: Never smoker SUBSTANCE USE: does not use ED Exam Narrative Physical exam: See [facility] for Dr. Stark's physical exam documentation. Course Quality Measures none Orders Category Date Time Status Bedside Influenza A&B Antigen Test NOW Care 05/31/25 15:06 Active EKG (ED ONLY) *Do not use* NOW Care 05/31/25 15:00 Completed Saline [Insert IV] NOW Care 05/31/25 15:06 Active EKG (ED Only) Stat Exams 05/31/25 15:00 Ordered XR chest 1V portable Stat Exams 05/31/25 15:07 Ordered Amylase Stat Lab 05/31/25 15:07 Ordered BNP [B-Type Natriuretic Peptide] Stat Lab 05/31/25 15:07 Ordered Beta Hydroxybutyrate Stat Lab 05/31/25 15:07 Ordered Bilirubin,Direct Stat Lab 05/31/25 15:07 Ordered Blood Culture (Lab) Stat Lab 05/31/25 15:07 Ordered CBC Stat Lab 05/31/25 15:07 Ordered CMP [Comprehensive Metabolic Panel] Stat Lab 05/31/25 15:07 Ordered CRP [C-Reactive Protein] Stat Lab 05/31/25 15:07 Ordered D-Dimer Stat Lab 05/31/25 15:07 Ordered ESR [Sed Rate (ESR)] Stat Lab 05/31/25 15:07 Ordered HCG,Qualitative Serum Stat Lab 05/31/25 15:07 Ordered Hemoglobin A1C [Glycohemoglobin w (eAG)] Stat Lab 05/31/25 15:07 Ordered Influenza A & B Rapid Panel Stat Lab 05/31/25 15:06 Ordered Lactate (Lactic Acid) Stat Lab 05/31/25 15:07 Ordered Lipase Stat Lab 05/31/25 15:07 Ordered Magnesium Stat Lab 05/31/25 15:07 Ordered Procalcitonin Stat Lab 05/31/25 15:07 Ordered TSH [Thyroid Stimulating Hormone] Stat Lab 05/31/25 15:07 Ordered Troponin I Stat Lab 05/31/25 15:07 Ordered UA, C/S IF [Urinalysis, C/S if Indicated] Stat Lab 05/31/25 15:08 Ordered VBG [Venous Blood Gas] Stat Lab 05/31/25 15:08 Ordered Ondansetron Inj [Zofran Inj] Med 05/31/25 15:06 Discontinued 4 mg IVP X1 ONE Sodium Chloride 0.9% 1000 ml [Ns] 1,000 ml Med 05/31/25 15:06 Active IV 999 mls/hr Vital Signs Vital signs: Vital Signs Temperature 98.3 F 05/31/25 15:01 Pulse Rate 130 H 05/31/25 15:01 Respiratory Rate 20 05/31/25 15:01 Blood Pressure 147/88 H 05/31/25 15:01 Pulse Oximetry (%) 97 05/31/25 15:01 Oxygen Delivery Method Room Air 05/31/25 15:01 Arrhythmia/Palpitations MDM Narrative MDM Narrative:: This section includes all my notes and documentations, including HPI, PE, and ED course. Edil Stark MD HPI: 39-year-old female here with a couple week history of episodes with different and varying symptoms. Symptoms can include intense fear, pounding and racing heart, sweating, chills, shaking, trouble breathing, chest pain, stomach pain, nausea, numbness and tingling in the hands and feet and face, confusion, hot flashes, and feeling faint. No other complaints. ROS: All negative except as documented in HPI. Physical Exam: General: Alert and oriented. Appears anxious. Eyes: Conjunctivae and lids clear. EOMI. PERRL. ENT: No nasal congestion. Pharynx normal. Tympanic membrane normal bilaterally. Neck: Supple. No carotid bruit. No JVD. Heart: RRR. Lungs: No respiratory distress. Good air movement. No rhonchi, wheezing, rales. Abdomen: Soft and nontender. Normal bowel sounds. No distension. No rebound or guarding. Back: No CVA tenderness. Legs: No clubbing, cyanosis, edema. Skin: Warm and dry. Neuro: Alert and oriented X 3. Cranial Nerves II-XII grossly intact. No peripheral motor deficits. I reviewed all diagnostic test results: My interpretation of the EKG is: Sinus tachycardia (110 bpm) with nonspecific ST-T changes. My interpretation of the chest x-ray is: NAD. Blood tests and urine tests unremarkable. Covid/Influenza are negative. At this point, diagnoses include: Heart palpitations, probably due to anxiety Treatment here included: IVF Zofran 4 mg IV Potassium 40 meq PO for hypokalemia She felt much better. Recommended more outpatient care. Based on my best medical judgment, made decision no further evaluation or treatment indicated at this time. Patient understands and agrees to the discharge instructions customized and printed, see below. Discharge instructions from Dr. Stark: 1. After extensive evaluation, there is no life-threatening condition. Such as heart attack or pulmonary embolism (blood clots in your lungs) or pneumothorax (collapsed lung). 2. Your symptoms may be due to underlying stress or anxiety or nerves. This is fairly common. 3. Take Xanax as needed. Whether this helps or not will be valuable information to your private doctors. 4. See a private doctor on 06/01/2025. To make sure there is no serious underlying heart condition, ask to help you get more tests for your heart that cannot be done here in the ER. Such as Holter Monitor (cardiac monitoring at home from a day to even a month), heart stress test (on treadmill or with medication), echocardiogram (imaging of your heart structures), heart catherization (checking for blockages in your heart arteries), and a referral to see a Operations Support Analyst. 5. Seek immediate medical care with worsening or with any concerns. Edil Stark MD Patient data External records reviewed:: [facility] previous records Clinical information provided by:: patient Social determinants that could affect healthcare access:: none Patient has the following chronic illnesses:: Lupus, fibromyalgia How is presenting disease/condition affected by chronic disease/condition?: uneffected by Evaluation data The following diagnostics were reviewed and interpreted by me:: lab results, radiology exam(s) and EKG tracing(s) (My interpretation of the EKG is: Sinus tachycardia (110 bpm) with nonspecific ST-T changes. Edil Stark MD) Lab and/or radiology exams considered but not ordered:: None Interpretation Summary: I reviewed all diagnostic test results: My interpretation of the EKG is: Sinus tachycardia (110 bpm) with nonspecific ST-T changes. My interpretation of the chest x-ray is: NAD. Blood tests and urine tests unremarkable. Covid/Influenza are negative. Medications / Prescriptions Medications or Prescriptions considered but not ordered:: None Medication administrations:: Medication Administration History Sodium Chloride (Ns) 1,000 mls @ 999 mls/hr IV .Q1H1M ONE Stop: 05/31/25 16:06 Discontinued Medications Ondansetron HCl (Ondansetron Inj 2 Mg/Ml Inj 2 Ml) 4 mg IVP X1 ONE; Protocol Stop: 05/31/25 15:07 Treatment here included: IVF Zofran 4 mg IV Potassium 40 meq PO Consultations Consultation(s) initiated? (list below): No Diagnosis Differential diagnosis arrhythmia/palpitations: palpitations, anxiety, sinus tachycardia, artial fibrillation, artial flutter, ventricular premature beats, supraventricular tachycardia and ventricular tachycardia Most likely diagnosis given after review of the tests above:: Heart palpitations , probably due to anxiety Admission Indicated Admission indicated?: not indicated Explain why admission is indicated or not indicated:: With significant improvement and no condition needing emergent intervention, there was no indication for admission. Admission Request Was there a request for admission?: No Disposition Plan Disposition Plan: Discharge Discharge Attestation Discharge Attestation: The patient and all family members were given an opportunity to ask questions and understood the discharge instructions. Discharge instructions specifically effects, indications for sooner follow up or return to the emergency department, and the expected course of current diagnosis. Patient condition: Stable Discharge Plan Plan Patient Disposition: HOME (Self Care) Prescriptions/Referrals Prescriptions/Med Rec: New alprazolam [Xanax] 0.5 mg tablet 0.5 mg PO BID PRN (Reason: anxiety) Qty: 10 0RF No Action cyclobenzaprine 7.5 mg tablet 7.5 mg PO TID Qty: 14 0RF dicyclomine 20 mg tablet 20 mg PO TID PRN (Reason: abdominal pain) Qty: 21 0RF famotidine [Pepcid] 40 mg tablet 40 mg PO BID Qty: 14 0RF ondansetron 4 mg tablet,disintegrating 4 mg PO Q8H PRN (Reason: nausea and vomiting) Qty: 10 0RF methylprednisolone [Medrol (Smith)] 4 mg tablets,dose pack See Rx Instructions .ROUTE .COMPLEX Qty: 21 0RF Rx Instructions: Follow package directions Referrals: No Primary/Family,Physician [Referring Provider] - In 1 week Problem List Clinical Impression: Heart palpitations Patient/Caregiver Discharge Instructions Discharge Activity: activity as tolerated Education Materials: ED Palpitations Additional Instructions: Discharge instructions from Dr. Stark: 1. After extensive evaluation, there is no life-threatening condition. Such as heart attack or pulmonary embolism (blood clots in your lungs) or pneumothorax (collapsed lung). 2. Your symptoms may be due to underlying stress or anxiety or nerves. This is fairly common. 3. Take Xanax as needed. Whether this helps or not will be valuable information to your private doctors. 4. See a private doctor on 06/01/2025. To make sure there is no serious underlying heart condition, ask to help you get more tests for your heart that cannot be done here in the ER. Such as Holter Monitor (cardiac monitoring at home from a day to even a month), heart stress test (on treadmill or with medication), echocardiogram (imaging of your heart structures), heart catherization (checking for blockages in your heart arteries), and a referral to see a Operations Support Analyst. 5. Seek immediate medical care with worsening or with any concerns. Print Language: Venezuelan Stand Alone Forms: Ruth Award Info., Patient Portal Info Letter
[2025-05-31 15:31] LABS: Base Excess, Venous -4 (-3-3); Lactate (Lactic Acid) 1.8 mMol/L (0.4-2.0); O2 Saturation, Venous 79 % (96-97); PCO2, Venous 38 mmHg (36-56); PO2, Venous 44 mmHg (15-58); pH, Venous 7.36 (7.33-7.66)
[2025-05-31 15:33] LABS: Basophils # (Auto) 0.1 Thou/mm3 (0.0-0.2); Basophils % (Auto) 1 % (0-2.5); Eosinophils # (Auto) 0.1 Thou/mm3 (0.0-0.5); Eosinophils % (Auto) 1 % (0-10); Hematocrit 31.4 % (36.0-46.0); Hemoglobin 9.2 g/dL (12.0-16.0); Immature Granulocytes Auto 0.03 Thou/mm3 (0.00-0.00); Lymphocytes # (Auto) 3.0 Thou/mm3 (1.0-4.8); Lymphocytes % (Auto) 31 % (10-50); Mean Corpuscular HGB Conc 29.3 g/dl (31.0-37.0); Mean Corpuscular Hemoglobin 23.2 pg (25.0-35.0); Mean Corpuscular Volume 79 fL (80-100); Monocytes # (Auto) 0.7 Thou/mm3 (0.0-0.8); Monocytes % (Auto) 7 % (0-12); Neutrophils # (Auto) 5.9 Thou/mm3 (1.8-7.7); Neutrophils % (Auto) 61 % (37-80); Nucleated Red Blood Cell # 0.00 Thou/mm3 (0.00-0.00); Nucleated Red Blood Cell % 0 /100 WBC (0); Platelet Count 472 Thou/mm3 (140-440); RDW Standard Deviation 49.5 fL (36.4-46.3); Red Blood Count 3.97 Miln/mm3 (4.00-5.20); White Blood Count 9.8 Thou/mm3 (3.6-11.0)
[2025-05-31 15:44] LABS: Sed Rate (ESR) 69 mm/hr (0-20)
[2025-05-31 15:46] LABS: Beta Hydroxybutyrate 0.1 mmol/L (<0.6)
[2025-05-31 15:48] LABS: D-Dimer < 250 ng/mL (<600)
[2025-05-31 15:50] LABS: B-Type Natriuretic Peptide < 20 pg/mL (0-100); HCG,Qualitative Serum Negative
[2025-05-31 15:58] LABS: Alanine Aminotransferase 20 U/L (10-49); Albumin, Serum 4.9 gm/dL (3.5-5.0); Albumin/Globulin Ratio 1.9 (1.2-2.2); Alkaline Phosphatase 90 U/L (46-116); Amylase 45 U/L (30-118); Anion Gap 11 (7-16); Aspartate Amino Transferase 26 U/L (0-34); BUN/Creatinine Ratio 14 Ratio (12-20); Bilirubin,Direct < 0.1 mg/dL (0.0-0.3); Bilirubin,Total 0.2 mg/dL (0.3-1.2); Blood Urea Nitrogen 11 mg/dL (9-23); C-Reactive Protein < 0.5 mg/dL (0.0-0.9); Calcium 9.5 mg/dL (8.3-10.6); Calcium (Corrected) 9.5 mg/dL (8.5-10.1); Carbon Dioxide 21.9 mMol/L (20.0-31.0); Chloride 108 mMol/L (98-107); Creatinine (Component) 0.8 mg/dL (0.6-1.3); Estimated Creatinine Clearance 106.6 mL/min (>60); Globulin 2.6 gm/dL (2.3-3.5); Glucose 108 mg/dL (74-106); Lipase 40 U/L (12-53); Magnesium 1.8 mg/dL (1.6-2.6); Osmolality,Calculated 281 (275-295); Potassium 3.2 mMol/L (3.4-5.1); Procalcitonin < 0.04 ng/ml (0.0-0.49); Sodium 141 mMol/L (136-145); Thyroid Stimulating Hormone 1.89 uIU/mL (0.55-4.78); Total Protein 7.5 gm/dL (5.7-8.2); Troponin I < 0.002 ng/mL (0.0-0.045); eGFR > 60 See Note
[2025-05-31 16:03] LABS: Glucose Estimated Average 100 mg/dL (80-131); Hemoglobin A1C 5.1 % Hgb (4.8-6.0)
[2025-05-31 16:11] LABS: Collection Type, Urine Clean Catch
[2025-05-31] MEDS: SODIUM CHLORIDE 0.9% 1000 ML 1,000 ML 999 ML IV (16:12)
[2025-05-31] MEDS: ONDANSETRON INJ 2 MG/ML INJ 2 ML 4 MG IVP ×2 (16:13→17:50)
[2025-05-31 16:18] VITALS: PULSE 109; RESP 18; O2SAT 97
[2025-05-31] MEDS: POTASSIUM CHLORIDE 10% 20 MEQ/15 ML UDC 40 MEQ PO (16:22)
[2025-05-31 16:40] VITALS: BP 114/74; PULSE 109; RESP 16; TEMP 37.1; O2SAT 100
[2025-05-31 16:52] LABS: Bilirubin,Urine Negative (Negative); Blood,Urine Negative (Negative); Clarity,Urine Clear (Clear/Hazy); Color,Urine Lt-Yellow (Lt Yel-Yel); Culture Indicated,Urine Not Indicated; Glucose, Urine Negative (Negative); Ketones,Urine Negative (Negative); Leukocyte Esterase,Urine Negative (Negative); Nitrite,Urine Negative (Negative); PH,Urine 6.0 (5.0-7.0); Protein,Urine Trace (Neg - Trace); RBC,Urine 1 /hpf (0-3); Specific Gravity,Urine 1.023 (1.001-1.035); Squamous Epithelial Cell,Urine 3 /hpf (0-5); Urobilinogen,Urine Negative mg/dL (0.0-1.0); WBC,Urine 2 /hpf (0-5)
[2025-05-31 17:09] LABS: Influenza A Ag Negative; Influenza B Ag Negative
[2025-05-31] MEDS: ACETAMINOPHEN w/COD 300-30 TABLET 2 TAB PO (17:51)
[2025-05-31 17:57] VITALS: BP 125/88; PULSE 85; RESP 16; O2SAT 99
== END 2025-05-31 18:00 | disposition home or self-care (01) ==
PROVIDERS: Emergency Provider Emergency Medicine; PCP Physician Assistant
DX: I49.9 Cardiac arrhythmia, unspecified (principal)
CPT/HCPCS: 36415; 71045; 80053; 81001; 82010; 82150; 82248; 82803; 83036; 83605; 83690; 83735; 83880; 84145; 84443; 84484; 84703; 85025; 85379; 85652; 86140; 87040; 87502; 87635; 93005; 96374; 96376; 99284; J2405; J7030; A9270